=== PATIENT | female | born 1930 | race Caucasian/White ===

== ENCOUNTER 2017-01-03 03:23 | Inpatient (IN) | payer OTHER, BC ==
--- NOTE | 2017-01-03 03:51 | PDOC ---
History of Present Illness - General History Source: Patient Exam Limitations: No Limitations - History of Present Illness Initial Comments: 01/03/17 04:53 The patient is an 86 year old female with significant history of hypertension, hyperlipidemia, inguinal hernia 1975 s/p repair, brought in by EMS for approximately 1 day of diffuse abdominal pain, nausea and multiple episodes of nonbloody nonbilious vomiting. 5 days ago she began to experience vertiginous dizziness for which she was prescribed Meclazine and Zyrtec PRN. Since then she has been experiencing intermittent dizziness. This morning she began to experience her abdominal pain, nausea, and vomiting. She has not been able to keep food down. She is now complaining of associated palpitations. Last bowel movement was this morning and normal. No fever or chills. No chest pain or shortness of breath. No flank pain or changes in urination. <Shani Coker - Last Filed: 01/03/17 04:53> <Beata Stevens - Last Filed: 01/04/17 06:55> - General Chief Complaint: Nausea/Vomiting Stated Complaint: WEAKNESS/DIZZY Time Seen by Provider: 01/03/17 03:51 Past History <Shani Coker - Last Filed: 01/03/17 04:53> - Past Medical History Cardiac Disorders: Yes HTN: Yes Hypercholesterolemia: Yes - Surgical History Abdominal Surgery: Yes (HERNIA) - Suicide/Smoking/Psychosocial Hx Smoking History: Never smoked Have you smoked in the past 12 months: No Information on smoking cessation initiated: No Hx Alcohol Use: No Drug/Substance Use Hx: No Substance Use Type: None Hx Substance Use Treatment: No <Beata Stevens - Last Filed: 01/04/17 06:55> - Past Medical History Allergies/Adverse Reactions: Allergies Allergy/AdvReac Type Severity Reaction Status Date / Time No Known Drug Allergies Allergy Verified 01/03/17 03:25 Home Medications: Ambulatory Orders Aspirin [Aspir 81] 81 mg PO DAILY 12/06/13 Simvastatin 20 mg PO HS tablet 12/06/13 Furosemide 20 mg PO PRN 01/03/17 Triamcinolone 0.1% Cream 1 applic PRN 01/03/17 Zyrtec - 1 applic PRN 01/03/17 Review of Systems - Review of Systems Able to Perform ROS?: Yes Comments:: 01/03/17 05:00 GENERAL/CONSTITUTIONAL: No fever or chills. No weakness. HEAD, EYES, EARS, NOSE AND THROAT: No change in vision. No ear pain or discharge. No sore throat. CARDIOVASCULAR: No chest pain or shortness of breath. RESPIRATORY: No cough, wheezing, or hemoptysis. GASTROINTESTINAL: +Diffuse abdominal pain, nausea, multiple episodes of vomiting. No diarrhea or constipation. GENITOURINARY: No dysuria, frequency, or change in urination. MUSCULOSKELETAL: No joint or muscle swelling or pain. No neck or back pain. SKIN: No rash NEUROLOGIC: +Vertigino. No headache, loss of consciousness, or change in strength/sensation. ENDOCRINE: No increased thirst. No abnormal weight change. HEMATOLOGIC/LYMPHATIC: No anemia, easy bleeding, or history of blood clots. ALLERGIC/IMMUNOLOGIC: No hives or skin allergy. <Shani Coker - Last Filed: 01/03/17 04:53> *Physical Exam - Vital Signs Last Vital Signs Temp Pulse Resp BP Pulse Ox 97.6 F 78 18 134/80 100 01/03/17 03:25 01/03/17 03:25 01/03/17 03:25 01/03/17 03:25 01/03/17 03:25 - Physical Exam Comments: 01/03/17 05:01 GENERAL: Awake, alert, and fully oriented, in no acute distress HEAD: No signs of trauma EYES: PERRLA, EOMI, sclera anicteric, conjunctiva clear ENT: Auricles normal inspection, hearing grossly normal, nares patent, oropharynx clear without exudates. Moist mucosa. NECK: Normal ROM, supple, no lymphadenopathy, JVD, or masses. LUNGS: Breath sounds equal, clear to auscultation bilaterally. No wheezes, and no crackles. HEART: Regular rate and rhythm, normal S1 and S2, no murmurs, rubs or gallops. ABDOMEN: Diffusely tender to palpation. Soft, normoactive bowel sounds. No guarding, no rebound. No masses. EXTREMITIES: Normal range of motion, no edema. No clubbing or cyanosis. No cords, erythema, or tenderness NEUROLOGICAL: Cranial nerves II through XII grossly intact. Normal speech, normal gait SKIN: Warm, Dry, normal turgor, no rashes or lesions noted. <Shani Coker - Last Filed: 01/03/17 04:53> - Vital Signs Last Vital Signs Temp Pulse Resp BP Pulse Ox 97.6 F 78 18 134/80 100 01/03/17 03:25 01/03/17 03:25 01/03/17 03:25 01/03/17 03:25 01/03/17 03:25 <Beata Stevens - Last Filed: 01/04/17 06:55> ED Treatment Course - LABORATORY CBC & Chemistry Diagram: 01/03/17 05:03 01/03/17 05:03 <Beata Stevens - Last Filed: 01/04/17 06:55> Medical Decision Making - Medical Decision Making 01/03/17 07:04 Pt was hydrated in the ER and treated with antinausea meds. Labs appear normal ; pt however doesn't feel well; abd pain continues. Pt will be given oral contrast. She will be due for CT abd pelvis at 9am; She will be followed and reassessed by the AM ER doc. <Beata Stevens - Last Filed: 01/04/17 06:55> *DC/Admit/Observation/Transfer - Attestations Scribe Attestion: 01/03/17 05:03 Documentation prepared by Shani Coker, acting as medical fee clerk for Beata Stevens MD. <Shani Coker - Last Filed: 01/03/17 04:53> <Beata Stevens - Last Filed: 01/04/17 06:55> Diagnosis at time of Disposition: Acalculous cholecystitis - Discharge Dispostion Condition at time of disposition: Fair
[2017-01-03] MEDS ORDERED: ONDANSETRON 4 MG/2 ML VIAL IVPB ONE (04:54)
[2017-01-03] MEDS ORDERED: SODIUM CHLORIDE 0.9% 500 ML INFUS.BAG IV ONE (04:54)
[2017-01-03] MEDS ORDERED: ONDANSETRON 4 MG/2 ML VIAL ONE ×2 (05:07→05:22)
[2017-01-03 05:19] LABS: BASOPHIL 0.3 % (0-2.0); EOSINOPHIL 0.5 % (0-4.5); MCH 31.9 pg (25.7-33.7); MEAN CELL VOLUME 93.8 fl (80-96); MEAN PLT VOLUME 8.3 fl (7.5-11.1); NEUTROPHILS 85.6 % (42.8-82.8); PLATELET COUNT 192 K/MM3 (134-434); RDW 14.1 % (11.6-15.6); WHITE BLOOD COUNT 9.6 K/mm3 (4.0-10.0)
[2017-01-03 05:41] LABS: ALBUMIN 3.1 g/dl (3.4-5.0); ALK PHOS 107 U/L (45-117); AMYLASE 82 U/L (25-115); ANION GAP 5 (8-16); BILIRUBIN,TOTAL 0.5 mg/dL (0.2-1.0); CALCIUM 8.1 mg/dL (8.5-10.1); CO2 29 mmol/L (21-32); CREATININE 0.6 mg/dL (0.55-1.02); GLUCOSE,RANDOM 130 mg/dL (74-106); SGOT/AST 22 U/L (15-37); SGPT/ALT 21 U/L (12-78); TOT PROT 6.5 g/dl (6.4-8.2)
[2017-01-03] MEDS ORDERED: DEXTROSE 5%-0.45% SALINE 1,000 ML IV SCH (09:00)
[2017-01-03 09:30] LABS: URINE APPEARANCE CLEAR; URINE BILIRUBIN NEGATIVE (NEGATIVE); URINE BLOOD NEGATIVE (NEGATIVE); URINE COLOR LTYELLOW; URINE GLUCOSE (UA) 2+ (NEGATIVE); URINE KETONE TRACE (NEGATIVE); URINE NITRITE NEGATIVE (NEGATIVE); URINE PROTEIN NEGATIVE (NEGATIVE); URINE UROBILINOGEN NEGATIVE mg/dL (0.2-1.0)
[2017-01-03] MEDS ORDERED: ACETAMINOPHEN 325 MG TABLET (FP) PO ONE (12:19)
[2017-01-03] MEDS ORDERED: ACETAMINOPHEN 325 MG TABLET (FP) ONE (12:36)
[2017-01-03] MEDS ORDERED: PIPERACILLIN/TAZOB 2.25 GM/50 ML PREMIX BAG IVPB ONE (13:45)
[2017-01-03] MEDS ORDERED: PIPERACILLIN/TAZOB 2.25 GM 50 ML IVPB ONE (14:30)
--- NOTE | 2017-01-03 14:57 | PDOC ---
*Physical Exam - Vital Signs Last Vital Signs Temp Pulse Resp BP Pulse Ox 98.8 F 84 16 133/78 97 01/03/17 12:00 01/03/17 12:00 01/03/17 12:00 01/03/17 12:00 01/03/17 12:00 - Physical Exam Comments: 01/03/17 14:56 pt with acalculoous cholecystitis. iv abx administered; dr. merlos informed, agrees with plan of care. ED Treatment Course - LABORATORY CBC & Chemistry Diagram: 01/03/17 05:03 01/03/17 05:03 - ADDITIONAL ORDERS Additional order review: Laboratory Results 01/03/17 01/03/17 09:01 05:03 Sodium 134 L Potassium 4.3 Chloride 100 Carbon Dioxide 29 Anion Gap 5 L BUN 18 Creatinine 0.6 Creat Clearance w eGFR > 60 Random Glucose 130 H D Calcium 8.1 L Total Bilirubin 0.5 D AST 22 ALT 21 Alkaline Phosphatase 107 Total Protein 6.5 Albumin 3.1 L Total Amylase 82 Lipase 114 Urine Color Ltyellow Urine Appearance Clear Urine pH 7.0 Ur Specific Agar 1.015 Urine Protein Negative Urine Glucose (UA) 2+ H Urine Ketones Trace H Urine Blood Negative Urine Nitrite Negative Urine Bilirubin Negative Urine Urobilinogen Negative 01/03/17 05:03 RBC 3.59 L MCV 93.8 MCHC 34.0 RDW 14.1 MPV 8.3 Neutrophils % 85.6 H D Lymphocytes % 6.3 L D Monocytes % 7.3 Eosinophils % 0.5 D Basophils % 0.3 - RADIOLOGY Radiology Studies Ordered: Category Date Time Status ABDOMEN US -LIMITED [US] Stat Ultrasound 01/03/17 11:22 Completed - Medications Given in the ED: ED Medications Discontinued Medications Generic Name Dose Route Start Last Admin Trade Name Freq PRN Reason Stop Dose Admin Acetaminophen 650 mg 01/03/17 12:19 01/03/17 12:35 Tylenol - PO 01/03/17 12:20 650 mg ONCE ONE Administration Ondansetron HCl 4 mg 01/03/17 04:54 01/03/17 05:09 Zofran Injection IVPB 01/03/17 04:55 4 mg ONCE ONE Administration Sodium Chloride 700 ml 01/03/17 04:54 01/03/17 05:10 Normal Saline - IV 01/03/17 04:55 700 ml ONCE ONE Administration *DC/Admit/Observation/Transfer Diagnosis at time of Disposition: Cholecystitis without calculus - Discharge Dispostion Condition at time of disposition: Fair Admit: Yes
[2017-01-03] MEDS ORDERED: ONDANSETRON 4 MG/2 ML VIAL IVPUSH ONE (15:46)
[2017-01-03 16:44] LABS: URINE LEUK ESTERASE Negative (NEGATIVE)
[2017-01-03 17:09] VITALS: BMI 20.6
[2017-01-03] MEDS ORDERED: PIPERACIL/TAZOB 3.375 GM 3.375 GM/50 ML PREMIX IVPB ONE (19:00)
[2017-01-03] MEDS: D5-1/2NS+20 MEQ KCL - 1,000 ML IV SCH (22:22)
[2017-01-03] MEDS: HEPARIN NA (PORCINE) 5,000 UNITS/ML 1ML VIAL SQ SCH (22:24)
[2017-01-03] MEDS: HYDROmorphone HCL CARPU-JECT 1 MG/1 ML DISP.SYRIN IVPUSH PRN (23:47)
[2017-01-04] MEDS: HYDROmorphone HCL CARPU-JECT 1 MG/1 ML DISP.SYRIN IVPUSH PRN ×4 (06:39→23:14)
[2017-01-04 08:15] LABS: BASOPHIL 0.1 % (0-2.0); MCHC 32.9 g/dl (32.0-36.0); MEAN CELL VOLUME 94.1 fl (80-96); NEUTROPHILS 94.4 % (42.8-82.8); PLATELET COUNT 160 K/MM3 (134-434); RDW 14.5 % (11.6-15.6); WHITE BLOOD COUNT 16.3 K/mm3 (4.0-10.0)
[2017-01-04 08:38] LABS: ALBUMIN 2.5 g/dl (3.4-5.0); ALK PHOS 78 U/L (45-117); AMYLASE 36 U/L (25-115); ANION GAP 9 (8-16); BILIRUBIN,TOTAL 0.7 mg/dL (0.2-1.0); CALCIUM 7.3 mg/dL (8.5-10.1); CO2 24 mmol/L (21-32); CREATININE 0.6 mg/dL (0.55-1.02); GLUCOSE,RANDOM 114 mg/dL (74-106); SGOT/AST 17 U/L (15-37); SGPT/ALT 16 U/L (12-78); TOT PROT 5.5 g/dl (6.4-8.2)
[2017-01-04] MEDS: ASPIRIN COATED 81 MG TABLET.EC PO SCH (09:30)
[2017-01-04] MEDS: HEPARIN NA (PORCINE) 5,000 UNITS/ML 1ML VIAL SQ SCH ×2 (09:30→21:07)
--- NOTE | 2017-01-04 10:24 | HP ---
Admitting History and Physical - Admission History of Present Illness: 86 year old female with significant history of hypertension, hyperlipidemia, inguinal hernia 1975 s/p repair, brought in by EMS for approximately 1 day of diffuse abdominal pain, nausea and multiple episodes of nonbloody nonbilious vomiting. 5 days ago she began to experience vertiginous dizziness for which she was prescribed Meclazine and Zyrtec PRN. Yesterday she began to experience abdominal pain, nausea, and vomiting. She has not been able to keep food down. No fever or chills. No chest pain or shortness of breath. No flank pain or changes in urination. - Past Medical History Cardiovascular: Yes: HTN, Hyperlipdemia. 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)) - Smoking History Smoking history: Never smoked Have you smoked in the past 12 months: No If you are a former smoker, when did you quit?: 1961 - Alcohol/Substance Use Hx Alcohol Use: No - Social History ADL: Independent Home Medications - Allergies Allergies/Adverse Reactions: Allergies Allergy/AdvReac Type Severity Reaction Status Date / Time No Known Drug Allergies Allergy Verified 01/03/17 03:25 - Home Medications Home Medications: Ambulatory Orders Aspirin [Aspir 81] 81 mg PO DAILY 12/06/13 Simvastatin 20 mg PO HS tablet 12/06/13 Furosemide 20 mg PO PRN 01/03/17 Triamcinolone 0.1% Cream 1 applic PRN 01/03/17 Zyrtec - 1 applic PRN 01/03/17 Review of Systems - Review of Systems Cardiovascular: denies: Chest Pain, Palpitations, Shortness of Breath Respiratory: denies: Cough, SOB, SOB on Exertion Gastrointestinal: reports: Abdominal Pain, Nausea, Vomiting Neurological: reports: No Symptoms Physical Examination Vital Signs: Vital Signs Temperature 98.0 F 01/04/17 09:20 Pulse Rate 83 01/04/17 09:20 Respiratory Rate 18 01/04/17 09:20 Blood Pressure 101/43 01/04/17 09:20 O2 Sat by Pulse Oximetry (%) 95 01/03/17 21:00 Neck: Yes: Supple Cardiovascular: Yes: Regular Rate and Rhythm Respiratory: Yes: Regular, CTA Bilaterally Gastrointestinal: Yes: Normal Bowel Sounds, Soft, Distention, Tenderness (ruq) Labs: CBC, BMP 01/04/17 06:00 01/04/17 06:00 Imaging - Results Cat Scan: Report Reviewed Ultrasound: Report Reviewed Problem List - Problems (1) Acalculous cholecystitis Assessment/Plan: IV ABX ID,SURGICAL AND GI CONSULT NPO IVF Code(s): K81.9 - CHOLECYSTITIS, UNSPECIFIED (2) Sepsis Assessment/Plan: ABOVE Code(s): A41.9 - SEPSIS, UNSPECIFIED ORGANISM (3) HTN (hypertension) Assessment/Plan: MONITOR EKG Code(s): I10 - ESSENTIAL (PRIMARY) HYPERTENSION (4) Vertigo Assessment/Plan: CHRONIC STABLE NOW MECLIZINE PRN Code(s): R42 - DIZZINESS AND GIDDINESS
--- NOTE | 2017-01-04 10:42 | PN ---
Progress Note (short form) - Note Progress Note: ID Full note dictated and discussed with PMD NAD Selected Entries 01/04/17 09:20 Temperature 98.0 F Pulse Rate 83 Respiratory 18 Rate Blood Pressure 101/43 Abd Soft severe RUQ tenderness Microbiology 01/03/17 07:41 Urine - Urine Clean Catch Urine Culture - Final Laboratory Tests 01/03/17 01/03/17 01/03/17 05:03 05:03 09:01 WBC 9.6 D Plt Count Monocytes % Total Bilirubin 0.5 D Alkaline Phosphatase 107 Ur Leukocyte Esterase Negative 01/04/17 06:00 WBC 16.3 H D Plt Count 160 Monocytes % 2.5 L Total Bilirubin Alkaline Phosphatase Ur Leukocyte Esterase Assessment Acute cholecystitis Plan Blood cultures CRP Zosyn Surgical evaluation for cholecystectomy Problem List - Problems (1) Acute cholecystitis Code(s): K81.0 - ACUTE CHOLECYSTITIS
[2017-01-04] MEDS: D5-1/2NS+20 MEQ KCL - 1,000 ML IV SCH ×2 (11:12→23:12)
[2017-01-04 11:39] LABS: C-REACTIVE PROTEIN 13.2 MG/DL (0.00-0.3)
[2017-01-04] MEDS: PIPERACILLIN/TAZOB 4.5 GM 100 ML IVPB SCH ×2 (11:47→18:02)
--- NOTE | 2017-01-04 12:17 | CONS ---
DATE OF CONSULTATION: DATE OF DICTATION: 01/04/2017 This is an 86-year-old female who I am asked to see for evaluation of severe right upper quadrant pain. She has a history of inguina hernias in 1974 and hypertension and hyperlipidemia. She was brought by EMS with a 1-day history of abdominal pain, nausea, and multiple episodes of vomiting. She also has been experiencing vertigo, although this recently preceded the onset of her abdominal pain. She has no fever or chills and I am asked to see her now for further antibiotic management, having gotten a dose of Zosyn. PAST MEDICAL HISTORY: As noted above. CURRENT MEDICATIONS: Aspirin, simvastatin, Lasix, Antivert. ALLERGIES: None known. SOCIAL HISTORY: She lives at home. Former smoker; gave this up many years ago. No history of alcohol use. FAMILY HISTORY: Noncontributory. REVIEW OF SYSTEMS: Respiratory: No cough, shortness of breath, sputum production. Cardiac: No chest pain, palpitations, syncope. Gastrointestinal: Abdominal pain in the right upper quadrant, nausea, vomiting. Genitourinary: No dysuria, hematuria. PHYSICAL EXAMINATION: General: She was an elderly woman in no acute distress. Vital Signs: Weight 102 pounds, temperature 98, pulse 83, blood pressure 100/43, respirations 18. Neck: Supple. Lungs: Clear to P and A. Heart: S2, S2, regular rhythm without audible murmur. Abdomen: positive bowel sounds, marked tenderness noted on direct palpation in the right upper quadrant. Extremities: Without edema. White count is 16.3, hemoglobin 10.8, platelets of 160. BUN 11, creatinine 0.6. Liver enzymes within normal limits. Urinalysis negative for leukocyte esterase. Ultrasound of the gallbladder shows gallbladder overdistention with diffuse wall thickening and pericholecystic fluid collection. ASSESSMENT: Acute cholecystitis in this 86-year-old female, WBC elevated. PLAN: As discussed with Dr. Culver, we will get 2 sets of blood cultures, though she has been treated with antibiotic on admission; order Zosyn 4.5 g every 8 hours; and await surgical consultation, which has been requested with Dr. Gonzalez. ISABELA AVILA M.D. ALANA/[id number]
--- NOTE | 2017-01-04 14:27 | CON.GI ---
Consult Consult Specialty:: gastroenterology Referred by:: Dr Culver Reason for Consultation:: acute cholecystitis - History of Present Illness History of Present Illness: 86 y/o female was doing well until Thursday 12 pm when she developed moderate to severe ruq pain associated with nausea and vomiting. She was in the ER 3 am Thursday. Since then patient has persistent ruq pain and worsening WBC count(16, 000) - Past Medical History Cardio/Vascular: Yes: HTN, Hyperlipdemia. 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)) - Alcohol/Substance Use Hx Alcohol Use: No - Smoking History Smoking history: Never smoked Have you smoked in the past 12 months: No If you are a former smoker, when did you quit?: 1961 - Social History ADL: Independent Home Medications - Allergies Allergies/Adverse Reactions: Allergies Allergy/AdvReac Type Severity Reaction Status Date / Time No Known Drug Allergies Allergy Verified 01/03/17 03:25 - Home Medications Home Medications: Ambulatory Orders Aspirin [Aspir 81] 81 mg PO DAILY 12/06/13 Simvastatin 20 mg PO HS tablet 12/06/13 Furosemide 20 mg PO PRN 01/03/17 Triamcinolone 0.1% Cream 1 applic PRN 01/03/17 Zyrtec - 1 applic PRN 01/03/17 Physical Exam-GI Vital Signs: Vital Signs Temperature 98.0 F 01/04/17 09:20 Pulse Rate 76 01/04/17 10:59 Respiratory Rate 18 01/04/17 09:20 Blood Pressure 101/43 01/04/17 09:20 O2 Sat by Pulse Oximetry (%) 93 L 01/04/17 10:59 Constitutional: Yes: Well Nourished Eyes: Yes: Conjunctiva Clear HENT: Yes: Atraumatic Neck: Yes: Supple Cardiovascular: Yes: Regular Rate and Rhythm Respiratory: Yes: CTA Bilaterally ...Palpate: Yes: Guarding, Soft, Tenderness (--ruq tenderness). No: Hepatomegaly, Splenomegaly Labs: CBC, BMP 01/04/17 06:00 01/04/17 06:00 Hepatic Panel Total Bilirubin 0.7 mg/dL (0.2-1.0) D 01/04/17 06:00 AST 17 U/L (15-37) D 01/04/17 06:00 ALT 16 U/L (12-78) D 01/04/17 06:00 Alkaline Phosphatase 78 U/L (45-117) D 01/04/17 06:00 Albumin 2.5 g/dl (3.4-5.0) L 01/04/17 06:00 Imaging - Results Ultrasound: Report Reviewed Problem List - Problems (1) Acalculous cholecystitis Assessment/Plan: R> stat CBc/INR and type and hold spoke to Dr Lindquist for possible percutaneous cholecystostomy d/w Dr Mejia Code(s): K81.9 - CHOLECYSTITIS, UNSPECIFIED
[2017-01-04] MEDS: PIPERACIL/TAZOB 3.375 GM 3.375 GM/50 ML PREMIX IVPB SCH (14:53)
[2017-01-04 15:17] LABS: MCH 31.2 pg (25.7-33.7); MCHC 33.1 g/dl (32.0-36.0); MEAN CELL VOLUME 94.2 fl (80-96); MEAN PLT VOLUME 8.8 fl (7.5-11.1); NEUTROPHILS 94.5 % (42.8-82.8); PLATELET COUNT 162 K/MM3 (134-434); WHITE BLOOD COUNT 16.8 K/mm3 (4.0-10.0)
[2017-01-04 15:39] LABS: INR 1.06 (0.82-1.09)
--- NOTE | 2017-01-04 20:24 | CONSULT ---
Consult Consult Specialty:: Surgery Reason for Consultation:: Acute cholecystitis - History of Present Illness History of Present Illness: 86 female Consulted for RUQ pain + Evidence of acute cholecytitis on imaging Elevated WBC + RUQ tenderness - History Source History Provided By: Patient, Medical Record Limitations to Obtaining History: No Limitations - Past Medical History Cardio/Vascular: Yes: HTN, Hyperlipdemia. 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)) - Alcohol/Substance Use Hx Alcohol Use: No - Smoking History Smoking history: Never smoked Have you smoked in the past 12 months: No If you are a former smoker, when did you quit?: 1961 - Social History ADL: Independent Home Medications - Allergies Allergies/Adverse Reactions: Allergies Allergy/AdvReac Type Severity Reaction Status Date / Time No Known Drug Allergies Allergy Verified 01/03/17 03:25 - Home Medications Home Medications: Ambulatory Orders Aspirin [Aspir 81] 81 mg PO DAILY 12/06/13 Simvastatin 20 mg PO HS tablet 12/06/13 Furosemide 20 mg PO PRN 01/03/17 Triamcinolone 0.1% Cream 1 applic PRN 01/03/17 Zyrtec - 1 applic PRN 01/03/17 Family Disease History - Family Disease History Family History: Unremarkable Review of Systems - Review of Systems Constitutional: denies: Chills Neck: reports: No Symptoms Cardiovascular: denies: Chest Pain Respiratory: denies: Cough Gastrointestinal: reports: Abdominal Pain Neurological: denies: Change in LOC Pain Intensity: 4 Physical Exam Vital Signs: Vital Signs Temperature 98.8 F 01/04/17 18:10 Pulse Rate 80 01/04/17 18:10 Respiratory Rate 18 01/04/17 18:10 Blood Pressure 100/49 01/04/17 18:10 O2 Sat by Pulse Oximetry (%) 93 L 01/04/17 10:59 Constitutional: Yes: Calm Neck: Yes: Supple Cardiovascular: Yes: WNL Respiratory: Yes: Regular Gastrointestinal: Yes: Soft, Tenderness (RUQ), Other (+ Estevez's sign). No: Tenderness, Rebound Neurological: Yes: Alert, Oriented Labs: CBC, BMP 01/04/17 14:30 01/04/17 06:00 Imaging - Results Cat Scan: Report Reviewed, Image Reviewed Ultrasound: Report Reviewed, Image Reviewed Problem List - Problems (1) Acalculous cholecystitis Code(s): K81.9 - CHOLECYSTITIS, UNSPECIFIED (2) Acute cholecystitis Code(s): K81.0 - ACUTE CHOLECYSTITIS Assessment/Plan 86 female with acute cholecystitis Seen by GI- agree with plan for percutaneous cholecystostomy Discussed with IR- planned for 8am Antibiotics NPO IV fluids
[2017-01-05] MEDS ORDERED: PT OWN MED DRAWER 7, Y5N ONE (00:44)
[2017-01-05] MEDS: PIPERACILLIN/TAZOB 4.5 GM 100 ML IVPB SCH ×3 (01:27→17:53)
[2017-01-05] MEDS: HEPARIN NA (PORCINE) 5,000 UNITS/ML 1ML VIAL SQ SCH ×2 (09:26→21:53)
[2017-01-05] MEDS: ASPIRIN COATED 81 MG TABLET.EC PO SCH (10:42)
[2017-01-05] MEDS: HYDROmorphone HCL CARPU-JECT 1 MG/1 ML DISP.SYRIN IVPUSH PRN ×2 (10:42→21:54)
--- NOTE | 2017-01-05 10:59 | PN ---
Progress Note, Physician Chief Complaint: patient came back from IR s/p perc cholecystostomy feeling ok - Current Medication List Current Medications: Active Medications Acetaminophen (Tylenol -) 650 mg PO Q4H PRN PRN Reason: FEVER OR PAIN Aspirin (Ecotrin -) 81 mg PO DAILY [facility] Last Admin: 01/05/17 10:42 Dose: 81 mg Heparin Sodium (Porcine) (Heparin -) 5,000 unit SQ BID [facility] Last Admin: 01/05/17 09:26 Dose: Not Given Hydromorphone HCl (Dilaudid Injection -) 0.5 mg IVPUSH Q4H PRN PRN Reason: PAIN Last Admin: 01/05/17 10:42 Dose: 0.5 mg Potassium Chloride/Dextrose/Sod Cl (D5-1/2ns+20 Meq Kcl -) 1,000 mls @ 75 mls/ hr IV ASDIR [facility] Last Admin: 01/04/17 23:12 Dose: 75 mls/hr Piperacillin/Tazobactam/Dextrose (Zosyn 4.5gm Ivpb (Premix)) 100 mls @ 200 mls/ hr IVPB Q8H-IV [facility] PRN Reason: Protocol Last Admin: 01/05/17 10:42 Dose: 200 mls/hr - Objective Vital Signs: Vital Signs Temperature 98.2 F 01/05/17 09:04 Pulse Rate 88 01/05/17 10:12 Respiratory Rate 14 01/05/17 10:12 Blood Pressure 131/54 01/05/17 10:12 O2 Sat by Pulse Oximetry (%) 100 01/05/17 10:12 Constitutional: Yes: Calm, Thin Cardiovascular: Yes: Regular Rate and Rhythm, S1, S2 Respiratory: Yes: CTA Bilaterally Gastrointestinal: Yes: Other (s/p cholecystostomy) Edema: No Neurological: Yes: Alert, Oriented Labs: CBC, BMP 01/04/17 14:30 01/04/17 06:00 INR, PTT INR 1.06 (0.82-1.09) 01/04/17 14:30 Problem List - Problems (1) Acute cholecystitis Assessment/Plan: s/p perc cholecystostomy IV abx elevated wbc pain control heparin sub q dvt ppx awaiting culture npo till cleared by gi /surgery ivf Code(s): K81.0 - ACUTE CHOLECYSTITIS
--- NOTE | 2017-01-05 12:12 | PN ---
Progress Note, Physician Chief Complaint: ID S/P drainage catheter Dr Doug Mejia - Current Medication List Current Medications: Active Medications Acetaminophen (Tylenol -) 650 mg PO Q4H PRN PRN Reason: FEVER OR PAIN Aspirin (Ecotrin -) 81 mg PO DAILY [facility] Last Admin: 01/05/17 10:42 Dose: 81 mg Heparin Sodium (Porcine) (Heparin -) 5,000 unit SQ BID [facility] Last Admin: 01/05/17 09:26 Dose: Not Given Hydromorphone HCl (Dilaudid Injection -) 0.5 mg IVPUSH Q4H PRN PRN Reason: PAIN Last Admin: 01/05/17 10:42 Dose: 0.5 mg Potassium Chloride/Dextrose/Sod Cl (D5-1/2ns+20 Meq Kcl -) 1,000 mls @ 75 mls/ hr IV ASDIR [facility] Last Admin: 01/04/17 23:12 Dose: 75 mls/hr Piperacillin/Tazobactam/Dextrose (Zosyn 4.5gm Ivpb (Premix)) 100 mls @ 200 mls/ hr IVPB Q8H-IV [facility] PRN Reason: Protocol Last Admin: 01/05/17 10:42 Dose: 200 mls/hr - Objective Vital Signs: Vital Signs Temperature 98.3 F 01/05/17 11:21 Pulse Rate 87 01/05/17 11:21 Respiratory Rate 20 01/05/17 11:21 Blood Pressure 133/61 01/05/17 11:21 O2 Sat by Pulse Oximetry (%) 94 L 01/05/17 11:21 Constitutional: Yes: No Distress Neck: Yes: WNL, Supple Cardiovascular: Yes: Regular Rate and Rhythm, S1, S2 Respiratory: Yes: WNL, Regular, CTA Bilaterally Gastrointestinal: Yes: Soft, Tenderness, Other (RUQ drain) Edema: No Labs: CBC, BMP 01/04/17 14:30 01/04/17 06:00 INR, PTT INR 1.06 (0.82-1.09) 01/04/17 14:30 Problem List - Problems (1) Acute cholecystitis Code(s): K81.0 - ACUTE CHOLECYSTITIS Assessment/Plan Microbiology 01/03/17 07:41 Urine - Urine Clean Catch Urine Culture - Final Laboratory Tests 11/05/17 11/05/17 06:00 14:30 WBC 16.8 H Plt Count 162 Total Bilirubin 0.7 D AST 17 D ALT 16 D Alkaline Phosphatase 78 D Assessment Acute cholecystitis post drainage catheter Plan Culture bile Continue Jackie Segura MD
[2017-01-05] MEDS: D5-1/2NS+20 MEQ KCL - 1,000 ML IV SCH (17:54)
--- NOTE | 2017-01-05 18:46 | PN ---
GI Progress Note Subjective: s/p cholecystostomy tube insertion, no nauea, no vomiting , tolerating ice chips - Objective Vital Signs: Vital Signs Temperature 98.2 F 01/05/17 18:10 Pulse Rate 75 01/05/17 18:10 Respiratory Rate 20 01/05/17 18:10 Blood Pressure 108/52 01/05/17 18:10 O2 Sat by Pulse Oximetry (%) 94 L 01/05/17 11:21 Constitutional: Well Nourished Eyes: Yes: Conjunctiva Clear HENT: Yes: Atraumatic Neck: Yes: Supple Cardiovascular: Yes: Regular Rate and Rhythm Respiratory: Yes: CTA Bilaterally Gastrointestinal Inspection: Yes: Distention ...Palpate: Yes: Soft, Tenderness (--ruq). No: Firm/Rigid, Guarding, Hepatomegaly, Mass, Pulsatile Mass, Splenomegaly ...Percussion: Yes: Tympanitic Labs: CBC, BMP 01/04/17 14:30 01/04/17 06:00 INR, PTT INR 1.06 (0.82-1.09) 01/04/17 14:30 Problem List - Problems (1) Acalculous cholecystitis Assessment/Plan: s/p cholecystostomy R> clear liquids in am Code(s): K81.9 - CHOLECYSTITIS, UNSPECIFIED
--- NOTE | 2017-01-05 20:41 | PN ---
Progress Note (short form) - Note Progress Note: S/P percutaneous cholecystostomy tube placement by IR for drainage Pain controlled Vital Signs Period Temp Pulse Resp BP Sys/Pineda Pulse Ox Last 24 Hr 98.0 F-99 F 73-88 14-20 92-133/51-61 91-100 Abd soft, still with RUQ tenderness but slightly improved Drain in place- bilious CBC,CMP WBC 16.8 K/mm3 (4.0-10.0) H 01/04/17 14:30 RBC 3.48 M/mm3 (3.60-5.2) L 01/04/17 14:30 Hgb 10.8 GM/dL (10.7-15.3) 01/04/17 14:30 Hct 32.8 % (32.4-45.2) 01/04/17 14:30 MCV 94.2 fl (80-96) 01/04/17 14:30 MCH 31.2 pg (25.7-33.7) 01/04/17 14:30 MCHC 33.1 g/dl (32.0-36.0) 01/04/17 14:30 RDW 14.0 % (11.6-15.6) 01/04/17 14:30 Plt Count 162 K/MM3 (134-434) 01/04/17 14:30 MPV 8.8 fl (7.5-11.1) 01/04/17 14:30 Neutrophils % 94.5 % (42.8-82.8) H 01/04/17 14:30 Lymphocytes % 2.9 % (8-40) L 01/04/17 14:30 Monocytes % 2.6 % (3.8-10.2) L 01/04/17 14:30 Eosinophils % 0.0 % (0-4.5) 01/04/17 14:30 Basophils % 0.0 % (0-2.0) 01/04/17 14:30 Sodium 131 mmol/L (136-145) L 01/04/17 06:00 Potassium 3.8 mmol/L (3.5-5.1) 01/04/17 06:00 Chloride 98 mmol/L (98-107) 01/04/17 06:00 Carbon Dioxide 24 mmol/L (21-32) 01/04/17 06:00 Anion Gap 9 (8-16) 01/04/17 06:00 BUN 11 mg/dL (7-18) D 01/04/17 06:00 Creatinine 0.6 mg/dL (0.55-1.02) 01/04/17 06:00 Creat Clearance w eGFR > 60 (>60) 01/04/17 06:00 Random Glucose 114 mg/dL (74-106) H 01/04/17 06:00 Calcium 7.3 mg/dL (8.5-10.1) L 01/04/17 06:00 Total Bilirubin 0.7 mg/dL (0.2-1.0) D 01/04/17 06:00 AST 17 U/L (15-37) D 01/04/17 06:00 ALT 16 U/L (12-78) D 01/04/17 06:00 Alkaline Phosphatase 78 U/L (45-117) D 01/04/17 06:00 C-Reactive Protein Cancelled 01/04/17 11:00 Total Protein 5.5 g/dl (6.4-8.2) L 01/04/17 06:00 Albumin 2.5 g/dl (3.4-5.0) L 01/04/17 06:00 Total Amylase 36 U/L (25-115) D 01/04/17 06:00 Lipase 36 U/L (73-393) L 01/04/17 06:00 Serial CBC F/U drain output Diet Antibiotics Problem List - Problems (1) Acalculous cholecystitis Code(s): K81.9 - CHOLECYSTITIS, UNSPECIFIED (2) Acute cholecystitis Code(s): K81.0 - ACUTE CHOLECYSTITIS
[2017-01-06] MEDS: PIPERACILLIN/TAZOB 4.5 GM 100 ML IVPB SCH ×3 (01:10→18:31)
[2017-01-06 07:37] LABS: BASOPHIL 0.2 % (0-2.0); EOSINOPHIL 2.5 % (0-4.5); MCH 31.4 pg (25.7-33.7); MCHC 33.6 g/dl (32.0-36.0); MEAN CELL VOLUME 93.6 fl (80-96); MEAN PLT VOLUME 8.6 fl (7.5-11.1); NEUTROPHILS 86.8 % (42.8-82.8); PLATELET COUNT 146 K/MM3 (134-434); RDW 13.9 % (11.6-15.6); WHITE BLOOD COUNT 10.9 K/mm3 (4.0-10.0)
--- NOTE | 2017-01-06 07:59 | PN ---
Progress Note, Physician History of Present Illness: RUQ PAIN C/O LEG PAIN - Current Medication List Current Medications: Active Medications Acetaminophen (Tylenol -) 650 mg PO Q4H PRN PRN Reason: FEVER OR PAIN Aspirin (Ecotrin -) 81 mg PO DAILY [facility] Last Admin: 01/05/17 10:42 Dose: 81 mg Heparin Sodium (Porcine) (Heparin -) 5,000 unit SQ BID [facility] Last Admin: 01/05/17 21:53 Dose: 5,000 unit Hydromorphone HCl (Dilaudid Injection -) 0.5 mg IVPUSH Q4H PRN PRN Reason: PAIN Last Admin: 01/05/17 21:54 Dose: 0.5 mg Potassium Chloride/Dextrose/Sod Cl (D5-1/2ns+20 Meq Kcl -) 1,000 mls @ 75 mls/ hr IV ASDIR [facility] Last Admin: 01/05/17 17:54 Dose: 75 mls/hr Piperacillin/Tazobactam/Dextrose (Zosyn 4.5gm Ivpb (Premix)) 100 mls @ 200 mls/ hr IVPB Q8H-IV [facility] PRN Reason: Protocol Last Admin: 01/06/17 01:10 Dose: 200 mls/hr - Objective Vital Signs: Vital Signs Temperature 98.3 F 01/06/17 05:00 Pulse Rate 63 01/06/17 05:00 Respiratory Rate 20 01/06/17 05:00 Blood Pressure 122/53 01/06/17 05:00 O2 Sat by Pulse Oximetry (%) 94 L 01/05/17 21:00 Cardiovascular: Yes: Regular Rate and Rhythm Respiratory: Yes: Regular, CTA Bilaterally Gastrointestinal: Yes: Soft, Distention, Tenderness Labs: CBC, BMP 01/04/17 06:00 INR, PTT INR 1.06 (0.82-1.09) 01/04/17 14:30 Problem List - Problems (1) Acalculous cholecystitis Assessment/Plan: IV ABX ID,SURGICAL AND GI CONSULT NPO--CLEAR LIQUIDS IVF S/P PERCUTANEOUS CHOLECYTOSTOMY TUBE PLACEMENT Code(s): K81.9 - CHOLECYSTITIS, UNSPECIFIED (2) Sepsis Assessment/Plan: ABOVE Code(s): A41.9 - SEPSIS, UNSPECIFIED ORGANISM (3) HTN (hypertension) Assessment/Plan: MONITOR EKG Code(s): I10 - ESSENTIAL (PRIMARY) HYPERTENSION (4) Vertigo Assessment/Plan: CHRONIC STABLE NOW MECLIZINE PRN Code(s): R42 - DIZZINESS AND GIDDINESS (5) Leg pain Assessment/Plan: DUPLEX ON HEPARIN Code(s): M79.606 - PAIN IN LEG, UNSPECIFIED
[2017-01-06 08:37] LABS: ALBUMIN 1.9 g/dl (3.4-5.0); ALK PHOS 91 U/L (45-117); ANION GAP 9 (8-16); BILIRUBIN,TOTAL 0.6 mg/dL (0.2-1.0); C-REACTIVE PROTEIN 18.2 MG/DL (0.00-0.3); CALCIUM 7.4 mg/dL (8.5-10.1); CO2 23 mmol/L (21-32); CREATININE 0.5 mg/dL (0.55-1.02); GLUCOSE,RANDOM 101 mg/dL (74-106); SGOT/AST 11 U/L (15-37); SGPT/ALT 13 U/L (12-78); TOT PROT 4.9 g/dl (6.4-8.2)
[2017-01-06] MEDS: HYDROmorphone HCL CARPU-JECT 1 MG/1 ML DISP.SYRIN IVPUSH PRN (10:11)
[2017-01-06] MEDS: ASPIRIN COATED 81 MG TABLET.EC PO SCH (10:14)
[2017-01-06] MEDS: HEPARIN NA (PORCINE) 5,000 UNITS/ML 1ML VIAL SQ SCH ×2 (10:14→22:33)
--- NOTE | 2017-01-06 14:13 | PN ---
Progress Note (short form) - Note Progress Note: Post IR procedure day #1 Doing well. No complaints. AVSS. Afebrile. Gen: nad Abd: Cholecystostomy Tube: 240 (bilious) <Michael Che P - Last Filed: 01/06/17 14:13> - Note Progress Note: Agree Doing well Pain controlled Vital Signs Period Temp Pulse Resp BP Sys/Pineda Pulse Ox Last 24 Hr 98 F-98.3 F 63-77 18-20 102-124/52-81 94-96 Abd soft, drain in place, bilious CBC,CMP WBC 10.9 K/mm3 (4.0-10.0) H D 01/06/17 06:00 RBC 3.04 M/mm3 (3.60-5.2) L 01/06/17 06:00 Hgb 9.6 GM/dL (10.7-15.3) L D 01/06/17 06:00 Hct 28.5 % (32.4-45.2) L 01/06/17 06:00 MCV 93.6 fl (80-96) 01/06/17 06:00 MCH 31.4 pg (25.7-33.7) 01/06/17 06:00 MCHC 33.6 g/dl (32.0-36.0) 01/06/17 06:00 RDW 13.9 % (11.6-15.6) 01/06/17 06:00 Plt Count 146 K/MM3 (134-434) 01/06/17 06:00 MPV 8.6 fl (7.5-11.1) 01/06/17 06:00 Neutrophils % 86.8 % (42.8-82.8) H 01/06/17 06:00 Lymphocytes % 6.1 % (8-40) L D 01/06/17 06:00 Monocytes % 4.4 % (3.8-10.2) 01/06/17 06:00 Eosinophils % 2.5 % (0-4.5) D 01/06/17 06:00 Basophils % 0.2 % (0-2.0) D 01/06/17 06:00 Sodium 134 mmol/L (136-145) L 01/06/17 07:30 Potassium 3.9 mmol/L (3.5-5.1) 01/06/17 07:30 Chloride 102 mmol/L (98-107) 01/06/17 07:30 Carbon Dioxide 23 mmol/L (21-32) 01/06/17 07:30 Anion Gap 9 (8-16) 01/06/17 07:30 BUN 9 mg/dL (7-18) 01/06/17 07:30 Creatinine 0.5 mg/dL (0.55-1.02) L 01/06/17 07:30 Creat Clearance w eGFR > 60 (>60) 01/06/17 07:30 Random Glucose 101 mg/dL (74-106) 01/06/17 07:30 Calcium 7.4 mg/dL (8.5-10.1) L 01/06/17 07:30 Total Bilirubin 0.6 mg/dL (0.2-1.0) 01/06/17 07:30 AST 11 U/L (15-37) L D 01/06/17 07:30 ALT 13 U/L (12-78) 01/06/17 07:30 Alkaline Phosphatase 91 U/L (45-117) 01/06/17 07:30 C-Reactive Protein 18.2 MG/DL (0.00-0.3) H D 01/06/17 07:30 Total Protein 4.9 g/dl (6.4-8.2) L 01/06/17 07:30 Albumin 1.9 g/dl (3.4-5.0) L D 01/06/17 07:30 Total Amylase 36 U/L (25-115) D 01/04/17 06:00 Lipase 36 U/L (73-393) L 01/04/17 06:00 Clears Advance to low fat diet as tolerated Antibiotics per ID Can discharge home from surgical standpoint when medically cleared F/u in office for future cholecystectomy [phone] <Fortunato Gonzalez - Last Filed: 01/06/17 14:30> Problem List - Problems (1) Acute cholecystitis Assessment/Plan: Cont to monitor drain output Cont medical management Pain management prn IV abx per ID f/u Bile culture Code(s): K81.0 - ACUTE CHOLECYSTITIS <Michael Che - Last Filed: 01/06/17 14:13> - Problems (1) Acalculous cholecystitis Code(s): K81.9 - CHOLECYSTITIS, UNSPECIFIED (2) Acute cholecystitis Code(s): K81.0 - ACUTE CHOLECYSTITIS <Fortunato Gonzalez - Last Filed: 01/06/17 14:30>
--- NOTE | 2017-01-06 14:38 | PN ---
GI Progress Note Subjective: abdominal pain less, patient is hungry - Objective Vital Signs: Vital Signs Temperature 98.2 F 01/06/17 09:00 Pulse Rate 66 01/06/17 09:00 Respiratory Rate 18 01/06/17 09:00 Blood Pressure 124/65 01/06/17 09:00 O2 Sat by Pulse Oximetry (%) 96 01/06/17 09:00 Constitutional: Well Nourished Eyes: Yes: Conjunctiva Clear HENT: Yes: Atraumatic Neck: Yes: Supple Cardiovascular: Yes: Regular Rate and Rhythm Respiratory: Yes: CTA Bilaterally ...Palpate: Yes: Soft, Tenderness (--mild ruq). No: Firm/Rigid, Guarding, Hepatomegaly, Mass, Pulsatile Mass Labs: CBC, BMP 01/06/17 06:00 01/06/17 07:30 INR, PTT INR 1.06 (0.82-1.09) 01/04/17 14:30 Problem List - Problems (1) Acalculous cholecystitis Assessment/Plan: --resolving R> continue to advance diet low sodium diet in am if ok with surgery Code(s): K81.9 - CHOLECYSTITIS, UNSPECIFIED
--- NOTE | 2017-01-06 16:29 | PN ---
Progress Note, Physician History of Present Illness: S/P Percutaneous Cholecystostomy C/O RUQ discomfort No N/V No BM No F/C Afebrile WBC improved - Current Medication List Current Medications: Active Medications Acetaminophen (Tylenol -) 650 mg PO Q4H PRN PRN Reason: FEVER OR PAIN Aspirin (Ecotrin -) 81 mg PO DAILY [facility] Last Admin: 01/06/17 10:14 Dose: 81 mg Heparin Sodium (Porcine) (Heparin -) 5,000 unit SQ BID [facility] Last Admin: 01/06/17 10:14 Dose: 5,000 unit Hydromorphone HCl (Dilaudid Injection -) 0.5 mg IVPUSH Q4H PRN PRN Reason: PAIN Last Admin: 01/06/17 10:11 Dose: 0.5 mg Potassium Chloride/Dextrose/Sod Cl (D5-1/2ns+20 Meq Kcl -) 1,000 mls @ 75 mls/ hr IV ASDIR [facility] Last Admin: 01/05/17 17:54 Dose: 75 mls/hr Piperacillin/Tazobactam/Dextrose (Zosyn 4.5gm Ivpb (Premix)) 100 mls @ 200 mls/ hr IVPB Q8H-IV [facility] PRN Reason: Protocol Last Admin: 01/06/17 10:14 Dose: 200 mls/hr - Objective Vital Signs: Vital Signs Temperature 97.9 F 01/06/17 14:48 Pulse Rate 72 01/06/17 14:48 Respiratory Rate 18 01/06/17 14:48 Blood Pressure 152/91 01/06/17 14:48 O2 Sat by Pulse Oximetry (%) 96 01/06/17 09:00 Constitutional: Yes: No Distress, Thin Eyes: Yes: Conjunctiva Clear Cardiovascular: Yes: Regular Rate and Rhythm, S1, S2 Respiratory: Yes: Diminished Gastrointestinal: Yes: Normal Bowel Sounds, Soft, Tenderness (Abdomen distended + RUQ tenderness Bile in RUQ drain) Edema: No Labs: CBC, BMP 01/06/17 06:00 01/06/17 07:30 INR, PTT INR 1.06 (0.82-1.09) 01/04/17 14:30 Assessment/Plan S/P percutaneous cholecystostomy Leukocytosis- improved BC (-) Drainage c/s pending Continue empiric zosyn
--- NOTE | 2017-01-06 21:44 | EKG ---
Test Reason : Blood Pressure : / mmHG Vent. Rate : 075 BPM Atrial Rate : 075 BPM P-R Int : 136 ms QRS Dur : 084 ms QT Int : 390 ms P-R-T Axes : 032 -40 -05 degrees QTc Int : 435 ms NORMAL SINUS RHYTHM POSSIBLE LEFT ATRIAL ENLARGEMENT LEFT AXIS DEVIATION POOR R WAVE PROGRESSION ABNORMAL ECG WHEN COMPARED WITH ECG OF 26-APR-2015 14:58, NO SIGNIFICANT CHANGE WAS FOUND Confirmed by SAMEER ALEXANDRA, KRYS ([id number]) on 01/06/2017 9:44:24 PM Referred By: Ronald GEIGER Confirmed By:KRYS ESTRELLA MD
[2017-01-06] MEDS: ACETAMINOPHEN 325 MG TABLET (FP) PO PRN (22:33)
[2017-01-06] MEDS: D5-1/2NS+20 MEQ KCL - 1,000 ML IV SCH (22:43)
[2017-01-07] MEDS ORDERED: PT OWN MED DRAWER 7, Y5N ONE (01:31)
[2017-01-07] MEDS: PIPERACILLIN/TAZOB 4.5 GM 100 ML IVPB SCH ×2 (01:36→09:20)
[2017-01-07 08:09] LABS: BASOPHIL 0.5 % (0-2.0); EOSINOPHIL 5.8 % (0-4.5); MCH 31.2 pg (25.7-33.7); MCHC 33.3 g/dl (32.0-36.0); MEAN CELL VOLUME 93.6 fl (80-96); MEAN PLT VOLUME 8.6 fl (7.5-11.1); NEUTROPHILS 74.9 % (42.8-82.8); PLATELET COUNT 153 K/MM3 (134-434); RDW 13.5 % (11.6-15.6); WHITE BLOOD COUNT 7.6 K/mm3 (4.0-10.0)
[2017-01-07 08:47] LABS: ALBUMIN 1.8 g/dl (3.4-5.0); ANION GAP 10 (8-16); CALCIUM 7.2 mg/dL (8.5-10.1); CO2 23 mmol/L (21-32); GLUCOSE,RANDOM 97 mg/dL (74-106)
[2017-01-07 08:50] LABS: ALK PHOS 98 U/L (45-117); BILIRUBIN,TOTAL 0.4 mg/dL (0.2-1.0); CREATININE 0.6 mg/dL (0.55-1.02); SGOT/AST 10 U/L (15-37); SGPT/ALT 12 U/L (12-78); TOT PROT 4.8 g/dl (6.4-8.2)
--- NOTE | 2017-01-07 08:50 | PN ---
Progress Note, Physician History of Present Illness: RUQ PAIN BETTER C/O LEG PAIN - Current Medication List Current Medications: Active Medications Acetaminophen (Tylenol -) 650 mg PO Q4H PRN PRN Reason: FEVER OR PAIN Last Admin: 01/06/17 22:33 Dose: 650 mg Aspirin (Ecotrin -) 81 mg PO DAILY [facility] Last Admin: 01/06/17 10:14 Dose: 81 mg Heparin Sodium (Porcine) (Heparin -) 5,000 unit SQ BID [facility] Last Admin: 01/06/17 22:33 Dose: 5,000 unit Piperacillin/Tazobactam/Dextrose (Zosyn 4.5gm Ivpb (Premix)) 100 mls @ 200 mls/ hr IVPB Q8H-IV [facility] PRN Reason: Protocol Last Admin: 01/07/17 01:36 Dose: 200 mls/hr - Objective Vital Signs: Vital Signs Temperature 98.2 F 01/07/17 08:45 Pulse Rate 67 01/07/17 08:45 Respiratory Rate 20 01/07/17 08:45 Blood Pressure 170/80 01/07/17 08:45 O2 Sat by Pulse Oximetry (%) 96 01/06/17 22:00 Cardiovascular: Yes: Regular Rate and Rhythm Respiratory: Yes: Regular, CTA Bilaterally Gastrointestinal: Yes: Normal Bowel Sounds, Soft, Tenderness Labs: CBC, BMP 01/07/17 06:00 INR, PTT INR 1.06 (0.82-1.09) 01/04/17 14:30 Problem List - Problems (1) HTN (hypertension) Assessment/Plan: MONITOR ADD DIOVAN 40 EKG Code(s): I10 - ESSENTIAL (PRIMARY) HYPERTENSION (2) Acalculous cholecystitis Assessment/Plan: IV ABX ID,SURGICAL AND GI CONSULT NPO--CLEAR LIQUIDS-LOW FAT DIET IVF S/P PERCUTANEOUS CHOLECYTOSTOMY TUBE PLACEMENT Code(s): K81.9 - CHOLECYSTITIS, UNSPECIFIED (3) Sepsis Assessment/Plan: ABOVE Code(s): A41.9 - SEPSIS, UNSPECIFIED ORGANISM (4) Vertigo Assessment/Plan: CHRONIC STABLE NOW MECLIZINE PRN Code(s): R42 - DIZZINESS AND GIDDINESS (5) Leg pain Assessment/Plan: DUPLEX-NO DVT ON HEPARIN Code(s): M79.606 - PAIN IN LEG, UNSPECIFIED
[2017-01-07] MEDS ORDERED: PANTOPRAZOLE 40 MG TABLET (FP) PO SCH (09:00)
[2017-01-07] MEDS: PANTOPRAZOLE 40 MG TABLET (FP) PO SCH (09:20)
[2017-01-07] MEDS: ASPIRIN COATED 81 MG TABLET.EC PO SCH (09:20)
[2017-01-07] MEDS: METOCLOPRAMIDE HCL 10 MG TABLET (FP) PO SCH ×3 (09:20→15:57)
[2017-01-07] MEDS: VALSARTAN 40 MG TABLET (FP) PO SCH (09:20)
[2017-01-07] MEDS: HEPARIN NA (PORCINE) 5,000 UNITS/ML 1ML VIAL SQ SCH ×2 (09:21→22:30)
[2017-01-07] MEDS: DOCUSATE SODIUM 100 MG CAPSULE (FP) PO PRN (09:26)
--- NOTE | 2017-01-07 11:19 | PN ---
Progress Note (short form) - Note Progress Note: No acute events On diet and tolerating Pain controlled Vital Signs Period Temp Pulse Resp BP Sys/Pineda Pulse Ox Last 24 Hr 97.3 F-98.2 F 67-73 18-20 143-170/64-91 96-97 Abd soft, drain in place CBC, BMP 01/07/17 06:00 01/07/17 08:00 Antibiotics per ID F/U in office [phone] for cholecsytectomy Problem List - Problems (1) Acalculous cholecystitis Code(s): K81.9 - CHOLECYSTITIS, UNSPECIFIED (2) Acute cholecystitis Code(s): K81.0 - ACUTE CHOLECYSTITIS
--- NOTE | 2017-01-07 12:31 | PN ---
Progress Note, Physician History of Present Illness: S/P Percutaneous Cholecystostomy C/O RUQ discomfort- improved No N/V + BM No F/C Afebrile WBC improved BC no growth Drainage c/s Klebsiella - Current Medication List Current Medications: Active Medications Acetaminophen (Tylenol -) 650 mg PO Q4H PRN PRN Reason: FEVER OR PAIN Last Admin: 01/06/17 22:33 Dose: 650 mg Aspirin (Ecotrin -) 81 mg PO DAILY [facility] Last Admin: 01/07/17 09:20 Dose: 81 mg Docusate Sodium (Colace -) 100 mg PO BID PRN PRN Reason: CONSTIPATION Last Admin: 01/07/17 09:26 Dose: 100 mg Heparin Sodium (Porcine) (Heparin -) 5,000 unit SQ BID [facility] Last Admin: 01/07/17 09:21 Dose: 5,000 unit Metoclopramide HCl (Reglan -) 5 mg PO TIDAC [facility] Last Admin: 01/07/17 11:33 Dose: 5 mg Pantoprazole Sodium (Protonix -) 40 mg PO DAILY [facility] Last Admin: 01/07/17 09:20 Dose: 40 mg Valsartan (Diovan -) 40 mg PO DAILY [facility] Last Admin: 01/07/17 09:20 Dose: 40 mg - Objective Vital Signs: Vital Signs Temperature 98.2 F 01/07/17 08:45 Pulse Rate 67 01/07/17 08:45 Respiratory Rate 20 01/07/17 08:45 Blood Pressure 170/80 01/07/17 08:45 O2 Sat by Pulse Oximetry (%) 97 01/07/17 09:00 Constitutional: Yes: No Distress Cardiovascular: Yes: Regular Rate and Rhythm, S1, S2 Respiratory: Yes: CTA Bilaterally Gastrointestinal: Yes: Other (Sl distended; mild RUQ tenderness; drain with clear bile) Edema: No Labs: CBC, BMP 01/07/17 06:00 01/07/17 08:00 INR, PTT INR 1.06 (0.82-1.09) 01/04/17 14:30 Assessment/Plan S/P percutaneous cholecystostomy Leukocytosis- improved BC (-) Drainage c/s klebsiella Substitute ceftriaxone
[2017-01-07] MEDS: CEFTRIAXONE 1 G/50 ML PREMIX 50 ML IVPB SCH (13:33)
[2017-01-07] MEDS ORDERED: PNEUMOCOCCAL 23 VACCINE 0.5 ML VIAL IM ONE (18:17)
[2017-01-07] MEDS: ACETAMINOPHEN 325 MG TABLET (FP) PO PRN (22:30)
[2017-01-08] MEDS: DOCUSATE SODIUM 100 MG CAPSULE (FP) PO PRN (06:51)
[2017-01-08] MEDS: METOCLOPRAMIDE HCL 10 MG TABLET (FP) PO SCH ×3 (06:51→17:13)
[2017-01-08] MEDS: CEFTRIAXONE 1 G/50 ML PREMIX 50 ML IVPB SCH (09:31)
[2017-01-08] MEDS: ASPIRIN COATED 81 MG TABLET.EC PO SCH (09:34)
[2017-01-08] MEDS: PANTOPRAZOLE 40 MG TABLET (FP) PO SCH (09:34)
[2017-01-08] MEDS: HEPARIN NA (PORCINE) 5,000 UNITS/ML 1ML VIAL SQ SCH ×2 (09:34→22:23)
[2017-01-08] MEDS: VALSARTAN 40 MG TABLET (FP) PO SCH (09:34)
--- NOTE | 2017-01-08 11:53 | DS ---
Physical Examination Vital Signs: Vital Signs Temperature 98.2 F 01/08/17 09:30 Pulse Rate 81 01/08/17 09:30 Respiratory Rate 18 01/08/17 09:30 Blood Pressure 156/67 01/08/17 09:30 O2 Sat by Pulse Oximetry (%) 97 01/07/17 20:30 Constitutional: Yes: Calm, Thin Cardiovascular: Yes: Regular Rate and Rhythm, S1, S2 Respiratory: Yes: CTA Bilaterally Gastrointestinal: Yes: Soft, Other (RUQ drain) Edema: No Neurological: Yes: Alert, Oriented Labs: CBC, BMP 01/07/17 06:00 01/07/17 08:00 Discharge Summary Reason For Visit: CHOLECYSTITIS WHITHOUT CALCULUS Current Active Problems Acalculous cholecystitis (Acute) Acute cholecystitis (Acute) Leg pain (Acute) Sepsis (Acute) Vertigo (Acute) Hospital Course: 86 year old female with significant history of hypertension, hyperlipidemia, inguinal hernia 1975 s/p repair, brought in by EMS for approximately 1 day of diffuse abdominal pain, nausea and multiple episodes of nonbloody nonbilious vomiting. 5 days ago she began to experience vertiginous dizziness for which she was prescribed Meclazine and Zyrtec PRN. Yesterday she began to experience abdominal pain, nausea, and vomiting. She has not been able to keep food down. No fever or chills. No chest pain or shortness of breath. No flank pain or changes in urination. - Past Medical History Cardiovascular: Yes: HTN, Hyperlipdemia. 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)) in hospital: imaging showed acute Acalculous cholecystits: seen by surgery and GI got percutanous cholecystostomy via IR on iv abx zosyn for elevated wbc now normal changed to rocephin based on cultures Microbiology 01/05/17 17:15 Gallbladder Gram Stain - Final 01/05/17 10:00 Body Fluid - Other Gram Stain - Final 01/05/17 10:00 Body Fluid - Other Anaerobic Culture - Final Klebsiella Pneumoniae NO ANAEROBES WERE ISOLATED 01/05/17 17:15 Gallbladder Wound Culture - Preliminary Klebsiella Pneumoniae tolerating abx and diet and to follow up with surgery regarding cholecystectomy hyponatremia improve with hydration to got to snf for iv abx and gait strengthening Condition: Guarded - Instructions Diet, Activity, Other Instructions: low sodium and low fat diet Referrals: Campbell Culver MD [Primary Care Provider] - Fortunato Gonzalez MD [Staff Physician] - 1 Week ([phone] for cholecsytectomy and follow up in one week) Disposition: [facility] F[facility] - Home Medications Comprehensive Discharge Medication List: Ambulatory Orders Aspirin [Aspir 81] 81 mg PO DAILY 12/06/13 Simvastatin 20 mg PO HS tablet 12/06/13 Furosemide 20 mg PO PRN 01/03/17 Triamcinolone 0.1% Cream 1 applic PRN 01/03/17 Zyrtec - 1 applic PRN 01/03/17
[2017-01-08] MEDS ORDERED: SODIUM CHLORIDE NASAL SPRAY 44 ML BOTTLE NS PRN (13:00)
--- NOTE | 2017-01-08 14:38 | PN ---
GI Progress Note Subjective: saw patient yesterday, still with 4/10 epigastric and ruq pain - Objective Vital Signs: Vital Signs Temperature 97.7 F 01/08/17 14:31 Pulse Rate 84 01/08/17 14:31 Respiratory Rate 20 01/08/17 14:31 Blood Pressure 154/73 01/08/17 14:31 O2 Sat by Pulse Oximetry (%) 97 01/07/17 20:30 Constitutional: Well Nourished Eyes: Yes: Conjunctiva Clear HENT: Yes: Atraumatic, Tonsillar Exudate Cardiovascular: Yes: Regular Rate and Rhythm Respiratory: Yes: CTA Bilaterally ...Palpate: Yes: Soft, Tenderness, Epigastium. No: Firm/Rigid, Guarding, Hepatomegaly, Mass, Pulsatile Mass, Splenomegaly Labs: CBC, BMP 01/07/17 06:00 01/07/17 08:00 INR, PTT INR 1.06 (0.82-1.09) 01/04/17 14:30 Problem List - Problems (1) Acalculous cholecystitis Assessment/Plan: resolving R> maintain on Protonix follow up with Dr Lindquist in 4 weeks for cholecystogram Code(s): K81.9 - CHOLECYSTITIS, UNSPECIFIED
[2017-01-08] MEDS: ACETAMINOPHEN 325 MG TABLET (FP) PO PRN (22:41)
[2017-01-09] MEDS: METOCLOPRAMIDE HCL 10 MG TABLET (FP) PO SCH ×2 (06:13→10:08)
[2017-01-09 09:40] VITALS: BP 137/69; PULSE 80; TEMP 97.6
[2017-01-09] MEDS: ASPIRIN COATED 81 MG TABLET.EC PO SCH (10:09)
[2017-01-09] MEDS: VALSARTAN 40 MG TABLET (FP) PO SCH (10:09)
[2017-01-09] MEDS: PANTOPRAZOLE 40 MG TABLET (FP) PO SCH (10:09)
[2017-01-09] MEDS: CEPHALEXIN MONOHYDRATE 500 MG CAPSULE (UD) PO SCH ×2 (10:09→10:10)
[2017-01-09] MEDS: HEPARIN NA (PORCINE) 5,000 UNITS/ML 1ML VIAL SQ SCH (10:10)
[2017-01-09] MEDS: DOCUSATE SODIUM 100 MG CAPSULE (FP) PO PRN (10:18)
[2017-01-09] MEDS ORDERED: PNEUMOCOCCAL 23 VACCINE 0.5 ML VIAL IM ONE (10:46)
--- NOTE | 2017-01-09 10:52 | PN ---
Progress Note, Physician - Current Medication List Current Medications: Active Medications Acetaminophen (Tylenol -) 650 mg PO Q4H PRN PRN Reason: FEVER OR PAIN Last Admin: 01/08/17 22:41 Dose: 650 mg Aspirin (Ecotrin -) 81 mg PO DAILY [facility] Last Admin: 01/09/17 10:09 Dose: 81 mg Cephalexin HCl (Keflex -) 500 mg PO BID [facility] Last Admin: 01/09/17 10:10 Dose: 500 mg Docusate Sodium (Colace -) 100 mg PO BID PRN PRN Reason: CONSTIPATION Last Admin: 01/09/17 10:18 Dose: 100 mg Heparin Sodium (Porcine) (Heparin -) 5,000 unit SQ BID [facility] Last Admin: 01/09/17 10:10 Dose: 5,000 unit Metoclopramide HCl (Reglan -) 5 mg PO TIDAC [facility] Last Admin: 01/09/17 10:08 Dose: 5 mg Pantoprazole Sodium (Protonix -) 40 mg PO DAILY [facility] Last Admin: 01/09/17 10:09 Dose: 40 mg Pneumococcal Polyvalent Vaccine (Pneumovax -) 0.5 ml IM .ONCE ONE Stop: 01/09/17 10:47 Sodium Chloride ([place]al [place] -) 2 spray NS TID PRN PRN Reason: NASAL CONGESTION Last Admin: 01/08/17 17:13 Dose: 2 spray Valsartan (Diovan -) 40 mg PO DAILY [facility] Last Admin: 01/09/17 10:09 Dose: 40 mg - Objective Vital Signs: Vital Signs Temperature 97.6 F 01/09/17 09:39 Pulse Rate 80 01/09/17 09:39 Respiratory Rate 18 01/09/17 09:39 Blood Pressure 137/69 01/09/17 09:39 O2 Sat by Pulse Oximetry (%) 97 01/08/17 21:00 Constitutional: Yes: Calm Neck: Yes: Trachea Midline Cardiovascular: Yes: Regular Rate and Rhythm, S1, S2 Respiratory: Yes: CTA Bilaterally Gastrointestinal: Yes: Soft, Other (RUQ drain) Edema: No Neurological: Yes: Alert, Oriented Labs: CBC, BMP 01/07/17 06:00 01/07/17 08:00 INR, PTT INR 1.06 (0.82-1.09) 01/04/17 14:30 Problem List - Problems (1) Acute cholecystitis Assessment/Plan: s/p perc cholecystostomy IV abx- now changed to PO kelfex for 7 days elevated wbc- now normal pain control low fat low sodium diet heparin sub q dvt ppx FU with IR in 4 weeks for cholecystogram and FU with surgery in 2 weeks Code(s): K81.0 - ACUTE CHOLECYSTITIS
== END 2017-01-09 11:45 | DRG 445 ==
LOC: JER 03:23 → JERBED 14:57 → J7W 18:17
PROVIDERS: ADMIT Family Medicine; ATTEND Family Medicine
PROC: 0F9430Z Drainage of Gallbladder with Drainage Device, Percutaneous Approach (ICD-10-PCS; principal; 2017-01-05)
DX: K81.0 Acute cholecystitis (principal); E87.1 Hypo-osmolality and hyponatremia; E78.5 Hyperlipidemia, unspecified; R42 Dizziness and giddiness; M79.606 Pain in leg, unspecified
CPT/HCPCS: 36415; 47490; 71010-TC; 74176-TC; 76098-TC; 76705-TC; 76998-TC; 80053; 81003; 82150; 83690; 85025; 85610; 86140; 86850; 86900; 86901; 87040; 87070; 87075; 87086; 87186; 87205; 87899; 93005; 93010; 93970-TC; 94010; 97116-GP; 97161-GP; 99282-25; A4358; C1729; C1769; J1644

== ENCOUNTER 2017-02-26 06:32 | Inpatient (IN) | payer OTHER, BC ==
[2017-02-20 16:00] VITALS: BMI 20.9
[2017-02-26] MEDS ORDERED: BUPIVACAINE HCL/PF 0.5% (5MG/ML) 10 ML VIAL ONE (07:50)
[2017-02-26] MEDS ORDERED: INDOCYANINE GREEN 25 MG/10 ML VIAL IVPUSH ONE (08:08)
--- NOTE | 2017-02-26 08:11 | HP ---
Admitting History and Physical - Admission Chief Complaint: S/P cholecystostomy for acute cholecystitis History Source: Patient Limitations to Obtaining History: No Limitations - Past Medical History Cardiovascular: Yes: HTN, Hyperlipdemia. 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)) - Smoking History Smoking history: Never smoked Have you smoked in the past 12 months: No If you are a former smoker, when did you quit?: 1961 - Alcohol/Substance Use Hx Alcohol Use: No - Social History ADL: Independent Home Medications - Allergies Allergies/Adverse Reactions: Allergies Allergy/AdvReac Type Severity Reaction Status Date / Time No Known Drug Allergies Allergy Verified 02/26/17 07:31 - Home Medications Home Medications: Ambulatory Orders Aspirin [Aspir 81] 81 mg PO DAILY 12/06/13 Furosemide [Lasix] 40 mg PO DAILY 02/20/17 Simvastatin 10 mg PO DAILY 02/20/17 Family Disease History - Family Disease History Family History: Denies Review of Systems - Review of Systems Constitutional: denies: Chills, Fever HENT: reports: No Symptoms Neck: reports: No Symptoms Cardiovascular: denies: Chest Pain Respiratory: denies: Cough Gastrointestinal: denies: Abdominal Pain Neurological: denies: Change in LOC Pain Intensity: 0 Physical Examination Vital Signs: Vital Signs Temperature 98.1 F 02/26/17 07:28 Pulse Rate 90 02/26/17 07:28 Respiratory Rate 20 02/26/17 07:28 Blood Pressure 130/66 02/26/17 07:28 O2 Sat by Pulse Oximetry (%) 96 02/26/17 07:20 Constitutional: Yes: Calm HENT: Yes: WNL Neck: Yes: Supple Cardiovascular: Yes: WNL Respiratory: Yes: Regular Gastrointestinal: Yes: Soft, Other (Cholecystostomy tube in place). No: Tenderness Neurological: Yes: Alert, Oriented Problem List - Problems (1) Acalculous cholecystitis Code(s): K81.9 - CHOLECYSTITIS, UNSPECIFIED Assessment/Plan S/P cholecystostomy drain for cholecystitis Now for interval cholecystectomy and removal of drain Risks and benefits explained Understands and agrees
[2017-02-26] MEDS ORDERED: ceFAZolin SODIUM 1 GM VIAL ONE (08:23)
[2017-02-26] MEDS ORDERED: DEXAMETHASONE SOD PHOSPHATE 4 MG/1 ML VIAL ONE (08:23)
[2017-02-26] MEDS ORDERED: KETOROLAC TROMETHAMINE 30 MG/1 ML VIAL ONE (08:23)
[2017-02-26] MEDS ORDERED: LIDOCAINE HCL/PF 2% SDV 5ML VIAL ONE (08:23)
[2017-02-26] MEDS ORDERED: PROPOFOL 20 ML ONE (08:24)
[2017-02-26] MEDS ORDERED: ROCURONIUM BROMIDE 50 MG/5 ML VIAL ONE (08:24)
[2017-02-26] MEDS ORDERED: MIDAZOLAM HCL 2 MG/2 ML SINGLE DOSE VIAL ONE (08:24)
[2017-02-26] MEDS ORDERED: fentaNYL CITRATE 250 MCG/5 ML VIAL ONE (08:24)
[2017-02-26] MEDS ORDERED: ceFAZolin SODIUM 1 GM VIAL IVPB ONE (08:43)
[2017-02-26] MEDS ORDERED: ATORVASTATIN CA 10 MG TABLET (FP) PO SCH (10:00)
[2017-02-26] MEDS ORDERED: NEOSTIGMINE METHYLSULFATE 0.5 MG/ML - 10 ML MDV ONE (10:32)
[2017-02-26] MEDS ORDERED: GLYCOPYRROLATE 0.2 MG/1 ML VIAL ONE ×2 (10:32)
[2017-02-26] MEDS ORDERED: HYDROmorphone HCL CARPU-JECT 1 MG/1 ML DISP.SYRIN IVPB PRN (10:46)
[2017-02-26] MEDS ORDERED: ONDANSETRON 4 MG/2 ML VIAL IVPUSH PRN ×2 (10:46→10:50)
--- NOTE | 2017-02-26 10:46 | OP ---
Operative Note - Note: Operative Date: 02/26/17 Pre-Operative Diagnosis: S/P cholecystostomy tube for prior episode of acute cholecystitis Operation: Robotic extensive lysis of adhesions, cholecystectomy, removal of cholecystostomy tube Post-Operative Diagnosis: Same as Pre-op Surgeon: Fortunato Gonzalez Electrical Tester Battery: Ruiz Mathews Anesthesia: General Specimens Removed: Gallbladder. Cholecystostomy tube Estimated Blood Loss (mls): 30 Operative Report Dictated: Yes
[2017-02-26] MEDS ORDERED: PROMETHAZINE HCL 25 MG/1 ML VIAL IVPUSH PRN (10:50)
[2017-02-26] MEDS ORDERED: LACTATED RINGERS SOLUTION 1,000 ML IV SCH (11:00)
[2017-02-26 11:50] LABS: HEMATOCRIT 29.7 % (32.4-45.2); HEMOGLOBIN 9.4 GM/dL (10.7-15.3); MCH 30.1 pg (25.7-33.7); MCHC 31.7 g/dl (32.0-36.0); MEAN CELL VOLUME 94.7 fl (80-96); MEAN PLT VOLUME 8.4 fl (7.5-11.1); PLATELET COUNT 170 K/MM3 (134-434); RBC 3.13 M/mm3 (3.60-5.2); RDW 14.5 % (11.6-15.6); WHITE BLOOD COUNT 8.1 K/mm3 (4.0-10.0)
[2017-02-26 12:06] LABS: ALBUMIN 2.7 g/dl (3.4-5.0); ANION GAP 10 (8-16); BILIRUBIN,DIRECT < 0.2 mg/dL (0.0-0.2); BILIRUBIN,TOTAL 0.2 mg/dL (0.2-1.0); BLOOD UREA NITROGEN 20 mg/dL (7-18); CALCIUM 8.5 mg/dL (8.5-10.1); CHLORIDE 101 mmol/L (98-107); CO2 28 mmol/L (21-32); CREATININE 0.7 mg/dL (0.55-1.02); GLUCOSE,RANDOM 155 mg/dL (74-106); POTASSIUM 4.1 mmol/L (3.5-5.1); SGOT/AST 19 U/L (15-37); SGPT/ALT 19 U/L (12-78); SODIUM 139 mmol/L (136-145); TOT PROT 5.5 g/dl (6.4-8.2)
[2017-02-26 12:07] LABS: ALK PHOS 79 U/L (45-117)
[2017-02-26] MEDS: D5-1/2NS+20 MEQ KCL - 20 MEQ/1,000 ML INFUS.BAG IV SCH ×2 (13:00→16:00)
--- NOTE | 2017-02-26 15:35 | OP ---
DATE OF OPERATION: 02/26/2017 SURGEON: Fortunato Gonzalez MD [place] PATROL LIEUTENANT: Ruiz Mathews MD PREOPERATIVE DIAGNOSIS: Status post cholecystostomy tube for a prior episode of acute cholecystitis. POSTOPERATIVE DIAGNOSIS: Status post cholecystostomy tube for a prior episode of acute cholecystitis. . PROCEDURE: Robotic-extensive lysis of adhesions, robotic-cholecystectomy, and removal of cholecystostomy drain. SPECIMEN: Gallbladder and cholecystostomy. DRAINS: None. ESTIMATED BLOOD LOSS: 30 mL. ANESTHESIA: GET. REASON FOR PROCEDURE: This is an 87-year-old female who had an episode of acute cholecystitis approximately 6 to 8 weeks ago. She had a cholecystostomy tube placed with interventional radiology because she was not a surgical candidate at that time due to her condition. After the tube had remained for 6 weeks she was then cleared by her medical doctor and tractor trailer mechanic for a cholecystectomy and was then consented for robotic possible open cholecystectomy with cholecystostomy removal. The risks and benefits of the procedure were explained. These included bleeding, infection, hernia, IL, DVT, PE, injury to surrounding structures including the liver, bile ducts, nerve injury, vessel injury, injury to the duodenum, bowel colon, spleen, stomach as well as other organs, bile leak and retained stones. She understood and signed for consent. DESCRIPTION OF THE PROCEDURE: The patient was placed supine on the operating room table. She underwent general endotracheal intubation. The abdomen was prepped and draped in the usual sterile fashion. A time-out was performed. An incision was made in the left lower quadrant and the Veress needle inserted. Pneumoperitoneum was established. The Veress needle was removed and an 8-mm trocar was inserted under direct visualization with the laparoscope. Subsequently 3 other 8 mm trocars were placed; one to the left of the initial trocar, one to the inferior and to the right of the umbilicus, and one into the right lateral abdominal wall. The patient was placed in reversed Trendelenburg right-sided position. Inspection of the abdominal cavity immediately noted that there were extensive adhesions throughout the abdominal cavity. Carefully these were taken down using hook electrocautery. The gallbladder was noted to be densely adhered to the anterior abdominal wall, bowel, duodenum and liver. Lysis of adhesions was extensive and took a significant amount of time. Carefully these adhesions were taken down one by one until the gallbladder was freed from all surrounding adhesions. The cholecystostomy tube was then freed and removed from the gallbladder and sent off the field. The gallbladder was retracted cephalad and laterally. The cystic duct followed by the cystic artery was circumferentially dissected, clipped and transected. The gallbladder was removed from the abdominal cavity in an EndoCatch bag. Hemostasis was noted. The abdomen was copiously irrigated and suctioned until dry. The robot that was brought up into the field at the beginning of the case and docked was now undocked after all instruments were removed. Pneumoperitoneum was desufflated. The fascia at the incision to the left and inferior of the umbilicus was closed using a 0 Vicryl suture as this was the area where the gallbladder was removed. All wound were irrigated and Marcaine was injected. All skin incisions were closed using erika. Sterile dressings were applied. The site of the cholecystostomy tube was covered with a Band-Aid as well. The patient tolerated the procedure well and was transferred to the recovery room in stable condition. Jack BILLINGS/[id number]
[2017-02-26] MEDS: oxyCODONE HCL 5 MG TABLET PO PRN ×2 (17:25→23:16)
[2017-02-26] MEDS: FUROSEMIDE 40 MG TABLET (FP) PO SCH (19:57)
[2017-02-26] MEDS: BACITRACIN 15 GM TUBE TOPICAL OINTMENT TP SCH ×2 (19:57→21:11)
[2017-02-26] MEDS: ATORVASTATIN CA 10 MG TABLET (FP) PO SCH (21:11)
[2017-02-27] MEDS: ACETAMINOPHEN 325 MG TABLET (FP) PO PRN ×2 (04:33→22:41)
[2017-02-27] MEDS: oxyCODONE HCL 5 MG TABLET PO PRN ×2 (04:33→22:41)
[2017-02-27 08:56] LABS: HEMATOCRIT 31.1 % (32.4-45.2); MCH 30.3 pg (25.7-33.7); MCHC 32.1 g/dl (32.0-36.0); MEAN CELL VOLUME 94.3 fl (80-96); MEAN PLT VOLUME 8.7 fl (7.5-11.1); PLATELET COUNT 178 K/MM3 (134-434); RDW 14.7 % (11.6-15.6); WHITE BLOOD COUNT 7.2 K/mm3 (4.0-10.0)
[2017-02-27] MEDS: FUROSEMIDE 40 MG TABLET (FP) PO SCH (09:00)
[2017-02-27 09:39] LABS: CHLORIDE 100 mmol/L (98-107); POTASSIUM 4.6 mmol/L (3.5-5.1); SODIUM 134 mmol/L (136-145)
[2017-02-27 09:48] LABS: ALBUMIN 2.7 g/dl (3.4-5.0); ALK PHOS 77 U/L (45-117); ANION GAP 6 (8-16); BILIRUBIN,DIRECT 0.2 mg/dL (0.0-0.2); BILIRUBIN,TOTAL 0.7 mg/dL (0.2-1.0); BLOOD UREA NITROGEN 19 mg/dL (7-18); CALCIUM 8.6 mg/dL (8.5-10.1); CO2 28 mmol/L (21-32); CREATININE 0.8 mg/dL (0.55-1.02); GLUCOSE,RANDOM 96 mg/dL (74-106); SGOT/AST 19 U/L (15-37); SGPT/ALT 20 U/L (12-78); TOT PROT 6.1 g/dl (6.4-8.2)
--- NOTE | 2017-02-27 10:37 | HP ---
Admitting History and Physical - Primary Care Physician PCP: Campbell Culver - Admission Chief Complaint: Cholecystetomy History of Present Illness: 86 year old female with significant history of hypertension, hyperlipidemia, inguinal hernia 1975 s/p repair, came in for Cholecystectomy, s/p percutaneous cholecystostomy. She tolerated the procedure well, although she feels weak. She's seen by PT, sitting in chair, NAD, weak. She lives at home alone, her children work medicare contact specialist. History Source: Patient, Medical Record Limitations to Obtaining History: No Limitations - Past Medical History Cardiovascular: Yes: HTN, Hyperlipdemia. 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)) - Smoking History Smoking history: Never smoked Have you smoked in the past 12 months: No If you are a former smoker, when did you quit?: 1961 - Alcohol/Substance Use Hx Alcohol Use: No - Social History ADL: Independent Home Medications - Allergies Allergies/Adverse Reactions: Allergies Allergy/AdvReac Type Severity Reaction Status Date / Time No Known Drug Allergies Allergy Verified 02/26/17 07:31 - Home Medications Home Medications: Ambulatory Orders Aspirin [Aspir 81] 81 mg PO DAILY 12/06/13 Furosemide [Lasix] 40 mg PO DAILY 02/20/17 Simvastatin 10 mg PO DAILY 02/20/17 Cephalexin [Keflex] 1 cap PO BID 02/26/17 Docusate Sodium [Colace -] 100 mg PO TID #90 capsule 02/26/17 Oxycodone HCl/Acetaminophen [Percocet 5-325 mg Tablet] 1 - 2 tab PO Q6H #28 tab MDD 4 02/26/17 Review of Systems - Review of Systems Constitutional: reports: No Symptoms Eyes: reports: No Symptoms HENT: reports: No Symptoms Neck: reports: No Symptoms Cardiovascular: reports: No Symptoms Respiratory: reports: No Symptoms Gastrointestinal: reports: No Symptoms Genitourinary: reports: No Symptoms Breasts: reports: No Symptoms Reported Musculoskeletal: reports: No Symptoms Integumentary: reports: No Symptoms Neurological: reports: No Symptoms Endocrine: reports: No Symptoms Hematology/Lymphatic: reports: No Symptoms Psychiatric: reports: No Symptoms Physical Examination Vital Signs: Vital Signs Temperature 98.5 F 02/27/17 06:28 Pulse Rate 71 02/27/17 06:28 Respiratory Rate 20 02/27/17 06:28 Blood Pressure 125/65 02/27/17 06:28 O2 Sat by Pulse Oximetry (%) 99 02/26/17 14:00 Constitutional: Yes: Well Nourished, No Distress, Calm Cardiovascular: Yes: Regular Rate and Rhythm Respiratory: Yes: Regular Gastrointestinal: Yes: Normal Bowel Sounds, Soft, Other (surgical incisions covered with sterile dressings and band aid) Musculoskeletal: Yes: WNL Extremities: Yes: WNL Edema: Yes Edema: LLE: 1+, RLE: 1+ Peripheral Pulses WNL: Yes Wound/Incision: Yes: Other (laceration RLE) Neurological: Yes: Alert, Oriented Psychiatric: Yes: Alert, Oriented Labs: CBC, BMP 02/27/17 08:00 02/27/17 08:00 Problem List - Problems (1) Acalculous cholecystitis Assessment/Plan: -s/p Cholesystectomy Code(s): K81.9 - CHOLECYSTITIS, UNSPECIFIED (2) Anemia Assessment/Plan: -stable -ARPHAEL -Venofer -continue to monitor Code(s): D64.9 - ANEMIA, UNSPECIFIED (3) Hyponatremia Assessment/Plan: -repeat labs in AM Code(s): E87.1 - HYPO-OSMOLALITY AND HYPONATREMIA Assessment/Plan see problem list Physical therapy
--- NOTE | 2017-02-27 12:34 | PN ---
Progress Note (short form) - Note Progress Note: POD 1 Pain controlled Tolerating diet Vital Signs Period Temp Pulse Resp BP Sys/Pineda Pulse Ox Last 24 Hr 97.3 F-98.6 F 65-82 18-26 113-136/46-70 99-100 Abd soft CBC,CMP WBC 7.2 K/mm3 (4.0-10.0) 02/27/17 08:00 RBC 3.30 M/mm3 (3.60-5.2) L 02/27/17 08:00 Hgb 10.0 GM/dL (10.7-15.3) L 02/27/17 08:00 Hct 31.1 % (32.4-45.2) L 02/27/17 08:00 MCV 94.3 fl (80-96) 02/27/17 08:00 MCH 30.3 pg (25.7-33.7) 02/27/17 08:00 MCHC 32.1 g/dl (32.0-36.0) 02/27/17 08:00 RDW 14.7 % (11.6-15.6) 02/27/17 08:00 Plt Count 178 K/MM3 (134-434) 02/27/17 08:00 MPV 8.7 fl (7.5-11.1) 02/27/17 08:00 Sodium 134 mmol/L (136-145) L 02/27/17 08:00 Potassium 4.6 mmol/L (3.5-5.1) 02/27/17 08:00 Chloride 100 mmol/L (98-107) 02/27/17 08:00 Carbon Dioxide 28 mmol/L (21-32) 02/27/17 08:00 Anion Gap 6 (8-16) L 02/27/17 08:00 BUN 19 mg/dL (7-18) H 02/27/17 08:00 Creatinine 0.8 mg/dL (0.55-1.02) 02/27/17 08:00 Random Glucose 96 mg/dL (74-106) D 02/27/17 08:00 Calcium 8.6 mg/dL (8.5-10.1) 02/27/17 08:00 Total Bilirubin 0.7 mg/dL (0.2-1.0) D 02/27/17 08:00 Direct Bilirubin 0.2 mg/dL (0.0-0.2) 02/27/17 08:00 AST 19 U/L (15-37) 02/27/17 08:00 ALT 20 U/L (12-78) 02/27/17 08:00 Alkaline Phosphatase 77 U/L (45-117) 02/27/17 08:00 Total Protein 6.1 g/dl (6.4-8.2) L 02/27/17 08:00 Albumin 2.7 g/dl (3.4-5.0) L 02/27/17 08:00 Ambulate Diet Discharge planning when medically cleared Problem List - Problems (1) Acalculous cholecystitis Code(s): K81.9 - CHOLECYSTITIS, UNSPECIFIED
--- NOTE | 2017-02-27 13:06 | PATH ---
Surgical Pathology Report Patient Name: TONY JOHN [facility]. Rec. #: [id number] /Age/Gender: 1930 (Age: 87) / F Account: [id number] Location: [address] [place] [address] Taken: 02/26/2017 Received: 02/26/2017 Reported: 02/27/2017 Physicians: Fortunato Gonzalez M.D. Specimen(s) Received A: GALLBLADDER B: CHOLECYSTOTOMY TUBE Clinical History Cholelithiasis Final Diagnosis A. GALLBLADDER, ROBOTIC ASSISTED LAPAROSCOPIC CHOLECYSTECTOMY: GALLBLADDER WITH ACUTE AND CHRONIC INFLAMMATION, GRANULATION TISSUE FORMATION AND FOCAL FIBROSIS. B. CHOLECYSTOSTOMY TUBE, REMOVAL: CONSISTENT WITH CHOLECYSTOSTOMY TUBE. MACROSCOPIC DIAGNOSIS. Electronically Signed Lisbeth Lee M.D. Gross Description A. Received in formalin, labeled "gallbladder," is a 6.0 x 3.0 x 2.3 cm. gallbladder with a 0.2 cm in length dilated, stapled portion of cystic duct attached. The outer surface is red-brown and shaggy. The lumen contains green, tenacious bile. There are no choleliths identified. There is a focal narrowing of the central portion of the gallbladder lumen with surrounding firm fibrosis. The mucosa is pink-ulloa and velvety. The wall of the gallbladder ranges from 0.1-0.9 cm. in thickness. Coater sections are submitted in 5 cassettes as follows: 1-cystic duct margin; 2-0-dwzyxuyv from stricture; 5-uninvolved community engagement representative gallbladder. B. Received fresh labeled "cholecystotomy tube," is a 15 cm in length blue, coiled portion of tubing. No soft tissue is present. No sections are submitted, gross only. 02/26/2017 [facility]02/26/2017
--- NOTE | 2017-02-27 20:03 | PN ---
Progress Note, Physician Chief Complaint: Pt. pain controlled, no GA complaints. - Current Medication List Current Medications: Active Medications Acetaminophen (Tylenol -) 650 mg PO Q4H PRN PRN Reason: FEVER OR PAIN Last Admin: 02/27/17 04:33 Dose: 650 mg Atorvastatin Calcium (Lipitor -) 10 mg PO HS [facility] Last Admin: 02/26/17 21:11 Dose: 10 mg Bacitracin (Bacitracin -) 1 applic TP DAILY [facility] Last Admin: 02/26/17 21:11 Dose: 1 applic Furosemide (Lasix -) 40 mg PO DAILY [facility] Last Admin: 02/27/17 09:00 Dose: 40 mg Hydromorphone HCl (Dilaudid Injection -) 1 mg IVPB Q4H PRN PRN Reason: PAIN Potassium Chloride/Dextrose/Sod Cl (D5-1/2ns+20 Meq Kcl -) 20 meq in 1,000 mls @ 75 mls/hr IV [facility] Last Admin: 02/26/17 16:00 Dose: 75 mls/hr Ondansetron HCl (Zofran Injection) 4 mg IVPUSH Q4H PRN PRN Reason: NAUSEA AND/OR VOMITING - Objective Vital Signs: Vital Signs Temperature 98.0 F 02/27/17 19:16 Pulse Rate 70 02/27/17 19:16 Respiratory Rate 20 02/27/17 19:16 Blood Pressure 114/68 02/27/17 19:16 O2 Sat by Pulse Oximetry (%) 99 02/26/17 14:00 Constitutional: Yes: Well Nourished, No Distress, Calm Musculoskeletal: Yes: WNL Neurological: Yes: WNL, Alert, Oriented Labs: CBC, BMP 02/27/17 08:00 02/27/17 08:00 Assessment/Plan POD#1 s/p robotic cholecystectomy under GA. Doing well. D/C from anesthesia care.
[2017-02-27] MEDS ORDERED: HYDROmorphone HCL CARPU-JECT 2 MG/1 ML DISP.SYRIN ONE (22:28)
[2017-02-27] MEDS ORDERED: oxyCODONE HCL 5 MG TABLET ONE (22:40)
[2017-02-27] MEDS: ATORVASTATIN CA 10 MG TABLET (FP) PO SCH (22:42)
[2017-02-28 08:06] LABS: SERUM IRON SATURATION 6 % (15-55); TOTAL IRON BINDING CAPACITY 296 ug/dL (250-450); UIBC 277 ug/dL (118-369)
[2017-02-28] MEDS: ACETAMINOPHEN 325 MG TABLET (FP) PO PRN ×3 (09:59→22:29)
[2017-02-28] MEDS: BACITRACIN 15 GM TUBE TOPICAL OINTMENT TP SCH (09:59)
[2017-02-28] MEDS: FUROSEMIDE 40 MG TABLET (FP) PO SCH (09:59)
[2017-02-28] MEDS: oxyCODONE HCL 5 MG TABLET PO PRN ×2 (14:22→22:30)
[2017-02-28] MEDS ORDERED: IRON SUCROSE INJECTION 300 MG in SODIUM CHLORIDE 235 ML IVPB ONE (18:37)
[2017-02-28] MEDS ORDERED: BENZOCAINE/MENTH/CETYLPYRD CL 1 EACH LOZENGE MM PRN (18:39)
--- NOTE | 2017-02-28 18:40 | PN ---
Progress Note, Physician Chief Complaint: s/p Cholecystectomy History of Present Illness: NAD, complaining of sore throat - Current Medication List Current Medications: Active Medications Acetaminophen (Tylenol -) 650 mg PO Q4H PRN PRN Reason: FEVER OR PAIN Last Admin: 02/28/17 14:22 Dose: 650 mg Atorvastatin Calcium (Lipitor -) 10 mg PO HS [facility] Last Admin: 02/27/17 22:42 Dose: 10 mg Bacitracin (Bacitracin -) 1 applic TP DAILY [facility] Last Admin: 02/28/17 09:59 Dose: 1 applic Furosemide (Lasix -) 40 mg PO DAILY [facility] Last Admin: 02/28/17 09:59 Dose: 40 mg Hydromorphone HCl (Dilaudid Injection -) 1 mg IVPB Q4H PRN PRN Reason: PAIN Potassium Chloride/Dextrose/Sod Cl (D5-1/2ns+20 Meq Kcl -) 20 meq in 1,000 mls @ 75 mls/hr IV [facility] Last Admin: 02/26/17 16:00 Dose: 75 mls/hr Iron Sucrose 300 mg/ Sodium (Chloride) 250 mls @ 250 mls/hr IVPB ONCE ONE Stop: 02/28/17 19:36 Ondansetron HCl (Zofran Injection) 4 mg IVPUSH Q4H PRN PRN Reason: NAUSEA AND/OR VOMITING Oxycodone HCl (Roxicodone -) 5 mg PO Q4H PRN PRN Reason: MILD PAIN Last Admin: 02/28/17 14:22 Dose: 5 mg - Objective Vital Signs: Vital Signs Temperature 97.7 F 02/28/17 14:25 Pulse Rate 74 02/28/17 14:25 Respiratory Rate 18 02/28/17 14:25 Blood Pressure 103/56 02/28/17 14:25 O2 Sat by Pulse Oximetry (%) 99 02/28/17 09:04 Constitutional: Yes: Well Nourished, No Distress, Calm Cardiovascular: Yes: Regular Rate and Rhythm Respiratory: Yes: Regular Gastrointestinal: Yes: Normal Bowel Sounds, Other (surgical incisions) Musculoskeletal: Yes: WNL Extremities: Yes: WNL Edema: No Peripheral Pulses WNL: Yes Neurological: Yes: Alert, Oriented Psychiatric: Yes: Alert, Oriented Labs: CBC, BMP 02/27/17 08:00 02/27/17 08:00 Problem List - Problems (1) Acalculous cholecystitis Assessment/Plan: -s/p Cholesystectomy Code(s): K81.9 - CHOLECYSTITIS, UNSPECIFIED (2) Anemia Assessment/Plan: -stable -RAPHAEL -Venofer -continue to monitor Code(s): D64.9 - ANEMIA, UNSPECIFIED (3) Hyponatremia Assessment/Plan: -repeat labs in AM Code(s): E87.1 - HYPO-OSMOLALITY AND HYPONATREMIA Assessment/Plan see problem list Physical therapy
[2017-02-28] MEDS: ATORVASTATIN CA 10 MG TABLET (FP) PO SCH (22:30)
[2017-03-01 07:58] LABS: BASO % 0.4 % (0-2.0); HEMATOCRIT 30.2 % (32.4-45.2); HEMOGLOBIN 9.7 GM/dL (10.7-15.3); LYMPH % 9.5 % (8-40); MCH 30.4 pg (25.7-33.7); MCHC 32.2 g/dl (32.0-36.0); MEAN CELL VOLUME 94.5 fl (80-96); MEAN PLT VOLUME 8.6 fl (7.5-11.1); MONO % 5.2 % (3.8-10.2); NEUT % 78.9 % (42.8-82.8); PLATELET COUNT 163 K/MM3 (134-434); RBC 3.19 M/mm3 (3.60-5.2); RDW 14.2 % (11.6-15.6); WHITE BLOOD COUNT 7.4 K/mm3 (4.0-10.0)
[2017-03-01 08:08] LABS: ALBUMIN 2.3 g/dl (3.4-5.0); ANION GAP 5 (8-16); BILIRUBIN,TOTAL 0.5 mg/dL (0.2-1.0); BLOOD UREA NITROGEN 13 mg/dL (7-18); CALCIUM 7.7 mg/dL (8.5-10.1); CHLORIDE 99 mmol/L (98-107); CO2 33 mmol/L (21-32); CREATININE 0.6 mg/dL (0.55-1.02); GLUCOSE,RANDOM 81 mg/dL (74-106); POTASSIUM 3.4 mmol/L (3.5-5.1); SGOT/AST 12 U/L (15-37); SGPT/ALT 14 U/L (12-78); SODIUM 137 mmol/L (136-145); TOT PROT 5.5 g/dl (6.4-8.2)
[2017-03-01 08:09] LABS: ALK PHOS 83 U/L (45-117)
[2017-03-01] MEDS: FUROSEMIDE 40 MG TABLET (FP) PO SCH (09:17)
--- NOTE | 2017-03-01 20:02 | PN ---
Progress Note, Physician Chief Complaint: s/p Cholecystectomy History of Present Illness: NAD, sore throat is better Pain better controlled - Current Medication List Current Medications: Active Medications Acetaminophen (Tylenol -) 650 mg PO Q4H PRN PRN Reason: FEVER OR PAIN Last Admin: 02/28/17 22:29 Dose: 650 mg Atorvastatin Calcium (Lipitor -) 10 mg PO HS [facility] Last Admin: 02/28/17 22:30 Dose: 10 mg Bacitracin (Bacitracin -) 1 applic TP DAILY [facility] Last Admin: 02/28/17 09:59 Dose: 1 applic Benzocaine/Menthol (Cepacol Lozenge -) 1 each MM PRN PRN PRN Reason: SORE THROAT Furosemide (Lasix -) 40 mg PO DAILY [facility] Last Admin: 03/01/17 09:17 Dose: 40 mg Potassium Chloride/Dextrose/Sod Cl (D5-1/2ns+20 Meq Kcl -) 20 meq in 1,000 mls @ 75 mls/hr IV [facility] Last Admin: 02/26/17 16:00 Dose: 75 mls/hr Ondansetron HCl (Zofran Injection) 4 mg IVPUSH Q4H PRN PRN Reason: NAUSEA AND/OR VOMITING Oxycodone HCl (Roxicodone -) 5 mg PO Q4H PRN PRN Reason: MILD PAIN Last Admin: 02/28/17 22:30 Dose: 5 mg - Objective Vital Signs: Vital Signs Temperature 97.6 F 03/01/17 15:42 Pulse Rate 84 03/01/17 15:42 Respiratory Rate 18 03/01/17 10:00 Blood Pressure 117/68 03/01/17 15:42 O2 Sat by Pulse Oximetry (%) 99 02/28/17 21:00 Constitutional: Yes: Well Nourished, No Distress, Calm Cardiovascular: Yes: Regular Rate and Rhythm Respiratory: Yes: Regular Gastrointestinal: Yes: Normal Bowel Sounds, Tenderness (around surgical incisions) Musculoskeletal: Yes: Muscle Weakness Extremities: Yes: WNL Edema: Yes Edema: LLE: 1+, RLE: 1+ Peripheral Pulses WNL: Yes Integumentary: Yes: Laceration (RLE-weeping) Wound/Incision: Yes: Dressing Dry and Intact (surgical incisions) Neurological: Yes: Alert, Oriented Psychiatric: Yes: Alert, Oriented Labs: CBC, BMP 03/01/17 07:30 03/01/17 07:30 Problem List - Problems (1) Acalculous cholecystitis Assessment/Plan: -s/p Cholesystectomy Code(s): K81.9 - CHOLECYSTITIS, UNSPECIFIED (2) Anemia Assessment/Plan: -stable -RAPHAEL -Venofer -continue to monitor Code(s): D64.9 - ANEMIA, UNSPECIFIED (3) Hyponatremia Assessment/Plan: normalized Code(s): E87.1 - HYPO-OSMOLALITY AND HYPONATREMIA (4) Hypokalemia Assessment/Plan: -Kcl 40 meq once -receiving INVF with KCl Code(s): E87.6 - HYPOKALEMIA Assessment/Plan see problem list [facility]
--- NOTE | 2017-03-01 20:03 | DS ---
Physical Examination Vital Signs: Vital Signs Temperature 97.6 F 03/01/17 15:42 Pulse Rate 84 03/01/17 15:42 Respiratory Rate 18 03/01/17 10:00 Blood Pressure 117/68 03/01/17 15:42 O2 Sat by Pulse Oximetry (%) 99 02/28/17 21:00 Constitutional: Yes: Well Nourished, No Distress, Calm Cardiovascular: Yes: Regular Rate and Rhythm Respiratory: Yes: Regular Gastrointestinal: Yes: Normal Bowel Sounds Musculoskeletal: Yes: WNL Extremities: Yes: WNL Edema: Yes Edema: LLE: 1+, RLE: 1+ Peripheral Pulses WNL: Yes Integumentary: Yes: Laceration (RLE) Wound/Incision: Yes: Dressing Dry and Intact Neurological: Yes: Alert, Oriented Psychiatric: Yes: Alert, Oriented Labs: CBC, BMP 03/01/17 07:30 03/01/17 07:30 Discharge Summary Reason For Visit: CHOLELITHIASIS Current Active Problems Anemia (Acute) Hypokalemia (Acute) Hospital Course: 86 year old female with significant history of hypertension, hyperlipidemia, inguinal hernia 1975 s/p repair, came in for Cholecystectomy, s/p percutaneous cholecystostomy. She tolerated the procedure well, although she feels weak. She's seen by PT, sitting in chair, NAD, weak. She lives at home alone, her children work sales advisory manager. Condition: Stable - Instructions Diet, Activity, Other Instructions: Low sodium diet Please Elevate BLLE above pelvis when resting to decrease edema Bacitracin on RLE laceration daily Follow up with GI surgery in 1 week Repeat CBC,CMP in 1 week Disposition: RESIDENTIAL FACILITY - Home Medications Comprehensive Discharge Medication List: Ambulatory Orders Aspirin [Aspir 81] 81 mg PO DAILY 12/06/13 Furosemide [Lasix] 40 mg PO DAILY 02/20/17 Simvastatin 10 mg PO DAILY 02/20/17 Cephalexin [Keflex] 1 cap PO BID 02/26/17 Docusate Sodium [Colace -] 100 mg PO TID #90 capsule 02/26/17 Oxycodone HCl/Acetaminophen [Percocet 5-325 mg Tablet] 1 - 2 tab PO Q6H #28 tab MDD 4 02/26/17
[2017-03-01] MEDS: traMADol HCL 50 MG TABLET PO PRN (21:54)
[2017-03-01] MEDS: POTASSIUM CHLORIDE ORAL LIQUID 20 MEQ/15 ML PO ONE ×2 (21:54→22:02)
[2017-03-01] MEDS: ATORVASTATIN CA 10 MG TABLET (FP) PO SCH (21:54)
[2017-03-01] MEDS: DOCUSATE SODIUM 100 MG CAPSULE (FP) PO SCH (21:54)
[2017-03-02] MEDS: DOCUSATE SODIUM 100 MG CAPSULE (FP) PO SCH ×3 (06:45→21:09)
[2017-03-02 08:27] LABS: BASO % 0.6 % (0-2.0); EOS % 7.7 % (0-4.5); HEMATOCRIT 29.9 % (32.4-45.2); HEMOGLOBIN 9.7 GM/dL (10.7-15.3); LYMPH % 19.7 % (8-40); MCH 30.6 pg (25.7-33.7); MCHC 32.5 g/dl (32.0-36.0); MEAN CELL VOLUME 94.2 fl (80-96); MEAN PLT VOLUME 8.4 fl (7.5-11.1); MONO % 10.4 % (3.8-10.2); NEUT % 61.6 % (42.8-82.8); PLATELET COUNT 185 K/MM3 (134-434); RBC 3.17 M/mm3 (3.60-5.2); RDW 14.4 % (11.6-15.6); WHITE BLOOD COUNT 5.6 K/mm3 (4.0-10.0)
[2017-03-02 08:33] LABS: ALBUMIN 2.4 g/dl (3.4-5.0); ANION GAP 8 (8-16); BLOOD UREA NITROGEN 14 mg/dL (7-18); CALCIUM 8.3 mg/dL (8.5-10.1); CHLORIDE 100 mmol/L (98-107); CO2 31 mmol/L (21-32); GLUCOSE,RANDOM 87 mg/dL (74-106); POTASSIUM 3.8 mmol/L (3.5-5.1); SGOT/AST 14 U/L (15-37); SGPT/ALT 13 U/L (12-78); SODIUM 139 mmol/L (136-145)
[2017-03-02 08:36] LABS: ALK PHOS 82 U/L (45-117); BILIRUBIN,TOTAL 0.6 mg/dL (0.2-1.0); CREATININE 0.6 mg/dL (0.55-1.02); TOT PROT 5.7 g/dl (6.4-8.2)
[2017-03-02] MEDS: BACITRACIN 15 GM TUBE TOPICAL OINTMENT TP SCH ×2 (09:25→09:32)
[2017-03-02] MEDS: FUROSEMIDE 40 MG TABLET (FP) PO SCH (09:25)
--- NOTE | 2017-03-02 12:51 | PN ---
Progress Note, Physician - Current Medication List Current Medications: Active Medications Acetaminophen (Tylenol -) 650 mg PO Q4H PRN PRN Reason: FEVER OR PAIN Last Admin: 02/28/17 22:29 Dose: 650 mg Atorvastatin Calcium (Lipitor -) 10 mg PO HS [facility] Last Admin: 03/01/17 21:54 Dose: 10 mg Bacitracin (Bacitracin -) 1 applic TP DAILY [facility] Last Admin: 03/02/17 09:32 Dose: 1 applic Benzocaine/Menthol (Cepacol Lozenge -) 1 each MM PRN PRN PRN Reason: SORE THROAT Docusate Sodium (Colace -) 100 mg PO TID [facility] Last Admin: 03/02/17 06:45 Dose: 100 mg Furosemide (Lasix -) 40 mg PO DAILY [facility] Last Admin: 03/02/17 09:25 Dose: 40 mg Ondansetron HCl (Zofran Injection) 4 mg IVPUSH Q4H PRN PRN Reason: NAUSEA AND/OR VOMITING Tramadol HCl (Ultram -) 50 mg PO Q8H PRN PRN Reason: PAIN Last Admin: 03/01/17 21:54 Dose: 50 mg - Objective Vital Signs: Vital Signs Temperature 98 F 03/02/17 06:00 Pulse Rate 72 03/02/17 06:00 Respiratory Rate 18 03/02/17 06:00 Blood Pressure 110/50 03/02/17 06:00 O2 Sat by Pulse Oximetry (%) 99 03/01/17 21:00 Cardiovascular: Yes: S1, S2 Respiratory: Yes: Regular, CTA Bilaterally Gastrointestinal: Yes: Normal Bowel Sounds, Soft Labs: CBC, BMP 03/02/17 06:30 03/02/17 06:30 Assessment/Plan - Problems (1) Acalculous cholecystitis Assessment/Plan: -s/p Cholesystectomy Code(s): K81.9 - CHOLECYSTITIS, UNSPECIFIED (2) Anemia Assessment/Plan: -stable -RAPHAEL -Venofer -continue to monitor Code(s): D64.9 - ANEMIA, UNSPECIFIED (3) Hyponatremia Assessment/Plan: normalized Code(s): E87.1 - HYPO-OSMOLALITY AND HYPONATREMIA (4) Hypokalemia Assessment/Plan: -Kcl 40 meq once -receiving INVF with KCl Code(s): E87.6 - HYPOKALEMIA (5) Weakness Assessment/Plan: -pt--snf
[2017-03-02] MEDS: ALBUTEROL SO4 2.5/IPRATROPIUM 0.5 INH SOL 3 ML VIAL.NEB. NEB SCH (18:06)
[2017-03-02] MEDS: HEPARIN NA (PORCINE) 5,000 UNITS/ML 1ML VIAL SQ SCH (21:09)
[2017-03-02] MEDS: ATORVASTATIN CA 10 MG TABLET (FP) PO SCH (21:09)
[2017-03-03] MEDS: ALBUTEROL SO4 2.5/IPRATROPIUM 0.5 INH SOL 3 ML VIAL.NEB. NEB SCH ×3 (00:20→11:24)
[2017-03-03] MEDS: traMADol HCL 50 MG TABLET PO PRN (03:57)
[2017-03-03] MEDS: DOCUSATE SODIUM 100 MG CAPSULE (FP) PO SCH ×2 (05:24→14:28)
--- NOTE | 2017-03-03 08:15 | PN ---
Progress Note (short form) - Note Progress Note: No acute events Awaiting discharge to SNF On diet Pain controlled Vital Signs Period Temp Pulse Resp BP Sys/Pineda Pulse Ox Last 24 Hr 97.9 F-99.1 F 75-99 18-20 105-118/54-68 Abd soft CBC, BMP 03/02/17 06:30 03/02/17 06:30 Discharge to SNF Problem List - Problems (1) Acalculous cholecystitis Code(s): K81.9 - CHOLECYSTITIS, UNSPECIFIED
--- NOTE | 2017-03-03 09:15 | DS ---
Physical Examination Vital Signs: Vital Signs Temperature 97.9 F 03/03/17 05:41 Pulse Rate 99 H 03/03/17 05:41 Respiratory Rate 19 03/03/17 05:41 Blood Pressure 113/63 03/03/17 05:41 O2 Sat by Pulse Oximetry (%) 99 03/01/17 21:00 Cardiovascular: Yes: Regular Rate and Rhythm Respiratory: Yes: Regular, CTA Bilaterally Gastrointestinal: Yes: Normal Bowel Sounds, Soft Edema: Yes Edema: LLE: 2+, RLE: 1+ Labs: CBC, BMP 03/02/17 06:30 03/02/17 06:30 Discharge Summary Reason For Visit: CHOLELITHIASIS Current Active Problems Anemia (Acute) Hypokalemia (Acute) Hospital Course: 86 year old female with significant history of hypertension, hyperlipidemia, inguinal hernia 1975 s/p repair, came in for Cholecystectomy, s/p percutaneous cholecystostomy. She tolerated the procedure well, although she feels weak. She's seen by PT, sitting in chair, NAD, weak. She lives at home alone, her children work multimedia services manager. - Problems (1) Acalculous cholecystitis Assessment/Plan: -s/p Cholesystectomy Code(s): K81.9 - CHOLECYSTITIS, UNSPECIFIED (2) Anemia Assessment/Plan: -stable -RAPHAEL -Venofer -continue to monitor Code(s): D64.9 - ANEMIA, UNSPECIFIED (3) Hyponatremia Assessment/Plan: normalized Code(s): E87.1 - HYPO-OSMOLALITY AND HYPONATREMIA (4) Hypokalemia Assessment/Plan: -Kcl 40 meq once -receiving INVF with KCl Code(s): E87.6 - HYPOKALEMIA (5) Weakness Assessment/Plan: -pt--snf Condition: Stable - Instructions Diet, Activity, Other Instructions: Regular diet Please Elevate BLLE above pelvis when resting to decrease edema Bacitracin on RLE laceration daily Follow up with GI surgery in 1 week Repeat CBC,CMP in 1 week Disposition: [facility] FAC[facility] - Home Medications Comprehensive Discharge Medication List: Ambulatory Orders Aspirin [Aspir 81] 81 mg PO DAILY 12/06/13 Furosemide [Lasix] 40 mg PO DAILY 02/20/17 Simvastatin 10 mg PO DAILY 02/20/17 Cephalexin [Keflex] 1 cap PO BID 02/26/17 Docusate Sodium [Colace -] 100 mg PO TID #90 capsule 02/26/17 Oxycodone HCl/Acetaminophen [Percocet 5-325 mg Tablet] 1 - 2 tab PO Q6H #28 tab MDD 4 02/26/17 Acetaminophen [Tylenol .Regular Strength -] 650 mg PO Q4H PRN tablet 03/01/17 Bacitracin - [Bacitracin Topical Ointment -] 1 applic TP DAILY tube 03/01/17 Docusate Sodium [Colace -] 100 mg PO Q8H capsule 03/01/17 Tramadol HCl [Ultram -] 50 mg PO Q8H PRN #90 tablet MDD 3 03/01/17 Cetirizine HCl [Zyrtec -] 10 mg PO DAILY #30 tablet 03/03/17 Hydrocortisone 2.5% Topical Cr [Anusol-Hc -] 1 applic TP BID tube 03/03/17
[2017-03-03] MEDS ORDERED: LORATADINE 10 MG TABLET PO SCH (10:00)
[2017-03-03] MEDS ORDERED: HYDROCORTISONE 2.5% TOPICAL CREAM 30 GM TUBE TP SCH (10:00)
[2017-03-03] MEDS: FUROSEMIDE 40 MG TABLET (FP) PO SCH (10:13)
[2017-03-03] MEDS: BACITRACIN 15 GM TUBE TOPICAL OINTMENT TP SCH (10:15)
[2017-03-03] MEDS: HEPARIN NA (PORCINE) 5,000 UNITS/ML 1ML VIAL SQ SCH (10:15)
[2017-03-03 14:39] VITALS: BP 107/65; PULSE 97; TEMP 98.3
== END 2017-03-03 17:17 | DRG 409 ==
LOC: JASUSAT 06:32 → J6S 13:42 → JASUSAT 02-27 16:33 → J6S 02-27 16:33
PROVIDERS: ADMIT Surgery; ATTEND Surgery
PROC: 0FP440Z Removal of Drainage Device from Gallbladder, Percutaneous Endoscopic Approach (ICD-10-PCS; 2017-02-26)
PROC: 0DNE4ZZ Release Large Intestine, Percutaneous Endoscopic Approach (ICD-10-PCS; 2017-02-26)
PROC: 8E0W4CZ Robotic Assisted Procedure of Trunk Region, Percutaneous Endoscopic Approach (ICD-10-PCS; 2017-02-26)
PROC: 0FT44ZZ Resection of Gallbladder, Percutaneous Endoscopic Approach (ICD-10-PCS; principal; 2017-02-26 08:00)
DX: K80.00 Calculus of gallbladder with acute cholecystitis without obstruction (principal); E87.0 Hyperosmolality and hypernatremia; D64.9 Anemia, unspecified; I10 Essential (primary) hypertension; E78.5 Hyperlipidemia, unspecified; R42 Dizziness and giddiness; M81.8 Other osteoporosis without current pathological fracture; E06.3 Autoimmune thyroiditis; E87.6 Hypokalemia; R53.1 Weakness; K66.0 Peritoneal adhesions (postprocedural) (postinfection)
CPT/HCPCS: 36415; 80048; 80053; 80076; 82607; 82728; 83540; 83550; 84439; 84443; 85025; 85027; 86850; 86900; 86901; 88300-TC; 88304-TC; 93970-TC; 94640; 94760; 97116-GP; J1644; J1756